=== PATIENT | male | born 1960 | race African-American/Black ===

== ENCOUNTER 2017-03-07 11:57 | Emergency (ER) | payer OTHER ==
[2017-03-07 12:21] VITALS: BMI 30.2
[2017-03-07 12:23] VITALS: TEMP 96.9
--- NOTE | 2017-03-07 12:32 | PDOC ---
History of Present Illness - General History Source: Patient Exam Limitations: No Limitations - History of Present Illness Initial Comments: 03/07/17 12:45 The patient is a 56 year old male with a significant past medical history of HIV , diabetes, hypertension, and hypercholesterolemia, sent from [facility] by ambulance to the Emergency Department s/p unwitnessed slip and fall possibly due to low blood sugar. The patient admits that he tried to get out of bed this morning when he slid down the bed and fell, and an ambulance was called. The patient admits that his blood sugar was 190 last night, and that he took insulin before bed. He admits to that his blood sugar is normally slightly higher. He is unsure of the details of his fall, but denies head trauma. He admits that he believes the fall was due to low blood sugar. He has no complaints at this time other than that he is hungry. He admits that the last time his diabetes medication was changed was one year ago after his kidney transplant. The patient denies headache, double vision, and blurry vision. Patient denies neck pain, or back pain. Patient denies nausea, vomiting, and diarrhea. Patient denies fever, chills, and cough. PCP: doctor at [facility] Hx: kidney transplant (1 year ago) <Rebeca Miller - Last Filed: 03/07/17 12:44> <Ayla Hoffmann - Last Filed: 03/07/17 18:30> - General Chief Complaint: Blood Sugar Problem Stated Complaint: WEAKNESS Time Seen by Provider: 03/07/17 12:18 Past History <Rebeca Miller - Last Filed: 03/07/17 12:44> - Past Medical History Diabetes: Yes (iddm) Dialysis: Yes (hx of esrd, lt arm fistula s/p kidney transplant 2015) HTN: Yes Hypercholesterolemia: Yes HIV: Yes - Psycho/Social/Smoking Cessation Hx Anxiety: No Suicidal Ideation: No Smoking History: Unknown if ever smoked Have you smoked in the past 12 months: No Information on smoking cessation initiated: No Hx Alcohol Use: No Drug/Substance Use Hx: No Substance Use Type: None <Ayla Hoffmann - Last Filed: 03/07/17 18:30> - Past Medical History Allergies/Adverse Reactions: Allergies Allergy/AdvReac Type Severity Reaction Status Date / Time No Known Allergies Allergy Verified 03/07/17 12:15 Home Medications: Ambulatory Orders Abacavir Sulfate [Abacavir] 300 mg PO BID 03/07/17 Carvedilol [Coreg] 25 mg PO BID 03/07/17 Dolutegravir Sodium [Tivicay] 50 mg PO DAILY 03/07/17 Insulin Glargine,Hum.rec.anlog [Lantus (nf)] 17 units SQ HS 03/07/17 Insulin Lispro [Humalog] 12 unit SQ TID 03/07/17 Lamivudine [Epivir] 150 mg PO DAILY 03/07/17 Mycophenolate Mofetil [Cellcept] 1,000 mg PO BID 03/07/17 Nifedipine ER [Procardia Xl -] 90 mg PO BID 03/07/17 Prednisone 5 mg PO HS 03/07/17 Rosuvastatin Calcium [Crestor] 20 mg PO DAILY 03/07/17 Sodium Bicarbonate - 1,300 mg PO BID 03/07/17 Tacrolimus [Prograf] 7 mg PO BID 03/07/17 Tamsulosin HCl [Flomax] 0.4 mg PO DAILY 03/07/17 Review of Systems - Review of Systems Able to Perform ROS?: Yes Comments:: 03/07/17 12:45 GENERAL/CONSTITUTIONAL: + hungry, + low blood sugar. No fever or chills. No weakness. HEAD, EYES, EARS, NOSE AND THROAT: No change in vision. No ear pain or discharge. No sore throat. CARDIOVASCULAR: No chest pain or shortness of breath. RESPIRATORY: No cough, wheezing, or hemoptysis. GASTROINTESTINAL: No nausea, vomiting, diarrhea or constipation. GENITOURINARY: No dysuria, frequency, or change in urination. MUSCULOSKELETAL: No joint or muscle swelling or pain. No neck or back pain. SKIN: No rash NEUROLOGIC: No headache, vertigo, loss of consciousness, or change in strength/ sensation. ENDOCRINE: No increased thirst. No abnormal weight change. HEMATOLOGIC/LYMPHATIC: No anemia, easy bleeding, or history of blood clots. ALLERGIC/IMMUNOLOGIC: No hives or skin allergy. <Rebeca Miller - Last Filed: 03/07/17 12:44> *Physical Exam - Vital Signs Last Vital Signs Temp Pulse Resp BP Pulse Ox 96.9 F L 70 18 168/85 100 03/07/17 12:22 03/07/17 12:15 03/07/17 12:15 03/07/17 12:15 03/07/17 12:15 <Rebeca Miller - Last Filed: 03/07/17 12:44> - Vital Signs Last Vital Signs Temp Pulse Resp BP Pulse Ox 96.9 F L 70 18 168/85 100 03/07/17 12:22 03/07/17 12:15 03/07/17 12:15 03/07/17 12:15 03/07/17 12:15 - Physical Exam Comments: GENERAL: Awake, alert, and fully oriented, in no acute distress HEAD: No signs of trauma EYES: PERRLA, EOMI, sclera anicteric, conjunctiva clear. +Proptosis. ENT: Auricles normal inspection, hearing grossly normal, nares patent, oropharynx clear without exudates. Moist mucosa NECK: Normal ROM, supple, no lymphadenopathy, JVD, or masses LUNGS: Breath sounds equal, clear to auscultation bilaterally. No wheezes, and no crackles HEART: Regular rate and rhythm, normal S1 and S2, no murmurs, rubs or gallops ABDOMEN: Soft, nontender, normoactive bowel sounds. No guarding, no rebound. No masses EXTREMITIES: Normal range of motion, no edema. No clubbing or cyanosis. No cords, erythema, or tenderness NEUROLOGICAL: Cranial nerves II through XII grossly intact. Normal speech, normal gait SKIN: Warm, Dry, normal turgor, no rashes or lesions noted. <Ayla Hoffmann - Last Filed: 03/07/17 18:30> ED Treatment Course - LABORATORY CBC & Chemistry Diagram: 03/07/17 12:40 03/07/17 12:40 <Ayla Hoffmann - Last Filed: 03/07/17 18:30> Medical Decision Making - Medical Decision Making Pt observed in ED for 4 hours. Repeat FS 2 hours after he ate was stable. Stable for DC home. Will f/u at [facility] for insulin management. <Ayla Hoffmann - Last Filed: 03/07/17 18:30> *DC/Admit/Observation/Transfer - Attestations Scribe Attestion: 03/07/17 12:46 Documentation prepared by Rebeca Miller, acting as biomedical engineering technician for Ayla Hoffmann MD. <Rebeca Miller - Last Filed: 03/07/17 12:44> - Discharge Dispostion Admit: No <Ayla Hoffmann - Last Filed: 03/07/17 18:30> Diagnosis at time of Disposition: Hypoglycemia - Discharge Dispostion Disposition: HOME Condition at time of disposition: Stable - Patient Instructions Printed Discharge Instructions: DI for Hypoglycemia
[2017-03-07] MEDS ORDERED: SODIUM CHLORIDE 1,000 ML IV STA (12:37)
[2017-03-07 12:47] LABS: MCH 27.8 pg (25.7-33.7); MCHC 31.8 g/dl (32.0-35.9); MEAN CELL VOLUME 87.6 fl (80-96); MEAN PLT VOLUME 8.3 fl (7.5-11.1); PLATELET COUNT 151 K/MM3 (134-434); RDW 16.5 % (11.9-15.9); WHITE BLOOD COUNT 7.5 K/mm3 (4.0-10.0)
[2017-03-07 12:58] LABS: URINE APPEARANCE CLEAR; URINE BILIRUBIN NEGATIVE (NEGATIVE); URINE BLOOD NEGATIVE (NEGATIVE); URINE COLOR STRAW; URINE GLUCOSE (UA) NEGATIVE (NEGATIVE); URINE KETONE NEGATIVE (NEGATIVE); URINE LEUK ESTERASE NEGATIVE (NEGATIVE); URINE NITRITE NEGATIVE (NEGATIVE); URINE PROTEIN NEGATIVE (NEGATIVE); URINE UROBILINOGEN NEGATIVE E.U./dl (0.2-1.0)
[2017-03-07 13:13] LABS: ALBUMIN 3.7 g/dl (3.4-5.0); CALCIUM 8.4 mg/dL (8.5-10.1); COCKROFT - GAULT 62.26; CREATININE 1.9 mg/dL (0.7-1.3)
[2017-03-07 13:15] LABS: BILIRUBIN,TOTAL 0.8 mg/dL (0.2-1.0); TOT PROT 6.4 g/dl (6.4-8.2)
[2017-03-07 14:48] LABS: METAMYELOCYTE 3 % (0-2); PLATELET ESTIMATE ADEQUATE (NORMAL)
[2017-03-07 17:10] VITALS: BP 164/85; PULSE 78
== END 2017-03-07 17:30 | disposition home or self-care (01) ==
LOC: JER 11:57
PROC: 3E0337Z Introduction of Electrolytic and Water Balance Substance into Peripheral Vein, Percutaneous Approach (ICD-10-PCS; principal; 2017-03-07)
DX: E11.649 Type 2 diabetes mellitus with hypoglycemia without coma (principal); Z21 Asymptomatic human immunodeficiency virus [HIV] infection status; Z79.4 Long term (current) use of insulin; I10 Essential (primary) hypertension; E78.00 Pure hypercholesterolemia, unspecified; Z94.0 Kidney transplant status; W18.30XA Fall on same level, unspecified, initial encounter; Y93.9 Activity, unspecified; Y92.238 Other place in hospital as the place of occurrence of the external cause
CPT/HCPCS: 36415; 80053; 80197; 81003; 84443; 85025; 87086; 99284-25

== ENCOUNTER 2018-01-04 18:51 | Inpatient (IN) | payer OTHER ==
[2018-01-04] MEDS ORDERED: ALBUTEROL SO4 2.5/IPRATROPIUM 0.5 INH SOL 3 ML VIAL.NEB. NEB ONE ×2 (19:01→19:30)
--- NOTE | 2018-01-04 19:07 | PDOC ---
Attending Attestation - HPI HPI: 01/04/18 20:27 The patient is a 57 year old male, with a significant past medical history of CHF, HIV (last viral load undetectable, on HAART), HTN (on nifedipine), and diabetes, who presents to the emergency department via EMS with, 4 days of worsening shortness of breath. As per EMS, the patient was in respiratory distress upon their arrival and has had a worsening cough with associated orthopnea. - Medical Decision Making 01/04/18 20:07 EXAM: CHEST X-RAY PORTABLE* HISTORY: Shortness of breath FINDINGS: Mild to moderate degree cardiomegaly with pulmonary venous congestion. No focal consolidations Pleural contours are normal without pleural effusion or pneumothorax. No suspicious osseous abnormality. IMPRESSION: Mild to moderate degree cardiomegaly with pulmonary venous congestion. No focal consolidations Read by: Parrish Blanco MD <Kaitlin Pandya - Last Filed: 01/04/18 20:27> - Resident Resident Name: Aimee Seals - ED Attending Attestation I have performed the following: I have examined & evaluated the patient, The case was reviewed & discussed with the resident, I agree w/resident's findings & plan, Exceptions are as noted - Physicial Exam PE: 01/04/18 20:34 Patient was seen and evaluated immediately upon arrival. On initial evaluation, patient is obese, tachypneic and dyspneic, on BiPAP, in moderate respiratory distress; nc, atr eomi no jvd + Diffuse end expiratory wheezing bilaterally with intermittent Rales, most prominent at the bases. rrr sft, disted, nt, bowel sounds are normal in all 4 quadrants + 3 pitting edema lower extremity is bilaterally Awake and alert, moving all extremity symmetrically, gait-deferred - Medical Decision Making 01/04/18 20:35 Patient is a 57-year-old male with history of CHF, hypertension, HIV (on ART, viral load undetectable) who presents with worsening shortness of breath at rest and with minimal exertion. On initial evaluation, patient is noted to be dyspneic, tachypneic, with labored breathing, with diffuse expiratory wheezing bilaterally as well as rails which are prominent at the bases. +3 pitting edema of lower extremity is also noted. Differential diagnoses include CHF versus COPD versus pneumonia. We'll obtain CBC/CMP/cardiac enzymes/blood cultures. Chest x-ray reveals cardiomegaly, cephalization, fluid in the fissure, currently being Paula B lines, and a focal right middle lobe infiltrate. Will place patient on BiPAP at 15/5, and FiO2 50%. We'll administer sublingual nitroglycerin followed by nitroglycerin drip. We'll also consider Combivent therapy when necessary. We'll administer ceftriaxone and Zithromax for community -acquired pneumonia. We'll reassess. Likely admission. 01/04/18 21:00 Patient reassessed. Patient is resting comfortably, without accessory muscle use or labored breathing. Intermittent wheezing is still noted on lung evaluation. CBC reveals no evidence of leukocytosis. CMP reveals elevated BUN/ creatinine consistent with patient's previous history of chronic renal insufficiency. Potassium is minimally elevated. Will admit patient to telemetry for cardiac evaluation, and some rule out. <Michael Siu - Last Filed: 01/04/18 21:01> Attestations - Attestations 01/04/18 20:08 Documentation prepared by Kaitlin Pandya, acting as medical information specialist for Michael Siu MD. <Kaitlin Pandya - Last Filed: 01/04/18 20:27> - Attestations Physician Attestation: 01/04/18 20:33 The documentation was prepared by the scribe under my direct supervision. I have reviewed the documentation which correctly represents the findings, medical decision-making and critical action taken by me. <Michael Siu - Last Filed: 01/04/18 21:01>
[2018-01-04] MEDS ORDERED: FUROSEMIDE 100 MG/10 ML INJECTABLE VIAL IVPB ONE (19:31)
[2018-01-04] MEDS ORDERED: NITROGLYCERIN SUBLINGUAL 1/150 0.4 MG TAB SL ONE (19:31)
[2018-01-04] MEDS ORDERED: FUROSEMIDE 40 MG/4 ML INJECTABLE VIAL ONE ×2 (19:34→22:59)
[2018-01-04] MEDS ORDERED: NITROGLYCERIN 25MG/D5W 250ML 25 MG/250 ML ML IVPB ONE (19:34)
[2018-01-04] MEDS: NITROGLYCERIN 25MG/D5W 250ML 25 MG/250 ML ML IVPB SCH ×2 (19:40→23:55)
[2018-01-04] MEDS ORDERED: CEFTRIAXONE 1 GM in DEXTROSE 5%-WATER - 50 ML IVPB ONE (19:51)
[2018-01-04] MEDS ORDERED: AZITHROMYCIN IVPB 500 MG in DEXTROSE 5%-WATER - 250 ML IVPB ONE (19:51)
[2018-01-04 19:56] LABS: BASO % 1.3 % (0-2.0); EOS % 0.4 % (0-4.5); HEMATOCRIT 30.9 % (35.4-49); HEMOGLOBIN 10.2 GM/dL (11.7-16.9); LYMPH % 8.9 % (8-40); MCH 28.7 pg (25.7-33.7); MCHC 32.9 g/dl (32.0-35.9); MEAN CELL VOLUME 87.2 fl (80-96); MONO % 20.3 % (3.8-10.2); NEUT % 69.1 % (42.8-82.8); PLATELET COUNT 121 K/MM3 (134-434); RBC 3.54 M/mm3 (4.00-5.60); RDW 16.7 % (11.9-15.9); WHITE BLOOD COUNT 4.5 K/mm3 (4.0-10.0)
[2018-01-04] MEDS ORDERED: CEFTRIAXONE 1 GM/50 ML BAG ONE (19:59)
[2018-01-04 20:11] LABS: INR 1.04 (0.82-1.09); PROTHROMBIN TIME (PATIENT) 11.7 SEC (9.98-11.88)
[2018-01-04 20:14] LABS: ACTIVATED PTT 31.4 SECONDS (26.9-34.4)
[2018-01-04] MEDS ORDERED: AZITHROMYCIN IVPB 250 ML IVPB ONE (20:18)
--- NOTE | 2018-01-04 20:18 | PDOC ---
History of Present Illness - General Chief Complaint: Respiratory Stated Complaint: DIFFICULTY BREATHING Time Seen by Provider: 01/04/18 19:06 History Source: Patient Exam Limitations: No Limitations - History of Present Illness Initial Comments: This is a 57 YOM with h/o CHF (on 80 Lasix bid adherently, never been intubated for this), HIV (last viral load undetectable, on HAART), HTN (on nifedipine), and IDDM who p/w SOB for the past 4 days worsened significantly in the past 1.5 days. EMS notes that when they arrived on scene the patient was in respiratory distress and pulse oxygenation was mid-80% on RA. They placed him on NIV and O2 with partial relief of his symptoms and improvement of his pulse oxygenation to 98%. The patient has been having increasing cough and orthopnea, typical of his normal CHF exacerbation, but he denies any recent fever, chills, nausea, vomiting, or other symptoms. Past History - Past Medical History Allergies/Adverse Reactions: Allergies Allergy/AdvReac Type Severity Reaction Status Date / Time No Known Allergies Allergy Verified 01/04/18 20:14 Home Medications: Ambulatory Orders Abacavir Sulfate [Abacavir] 300 mg PO BID 03/07/17 Carvedilol [Coreg] 25 mg PO BID 03/07/17 Dolutegravir Sodium [Tivicay] 50 mg PO DAILY 03/07/17 Insulin Glargine,Hum.rec.anlog [Lantus (nf)] 17 units SQ HS 03/07/17 Insulin Lispro [Humalog] 12 unit SQ TID 03/07/17 Lamivudine [Epivir] 150 mg PO DAILY 03/07/17 Mycophenolate Mofetil [Cellcept] 500 mg PO BID 03/07/17 Nifedipine ER [Procardia Xl -] 30 mg PO BID 03/07/17 Prednisone 5 mg PO HS 03/07/17 Rosuvastatin Calcium [Crestor] 10 mg PO DAILY 03/07/17 Sodium Bicarbonate - 1,300 mg PO BID 03/07/17 Tacrolimus [Prograf] 6 mg PO BID 03/07/17 Tamsulosin HCl [Flomax] 0.4 mg PO DAILY 03/07/17 Aspirin 81 mg PO DAILY 01/06/18 Furosemide [Lasix] 40 mg PO BID 01/06/18 Sulfamethoxazole/Trimethoprim [Bactrim Ds -] 1 tab PO DAILY 01/06/18 COPD: No Diabetes: Yes (iddm) Dialysis: Yes (hx of esrd, lt arm fistula s/p kidney transplant 2015) HTN: Yes Hypercholesterolemia: Yes - Suicide/Smoking/Psychosocial Hx Smoking History: Unknown if ever smoked Have you smoked in the past 12 months: No Hx Alcohol Use: No Drug/Substance Use Hx: No Substance Use Type: None Review of Systems - Review of Systems Able to Perform ROS?: Yes Constitutional: No: Chills, Fever, Unexplained wgt Loss HEENTM: No: Nose Congestion, Throat Pain Respiratory: Yes: Cough, Orthopnea, Shortness of Breath. No: Stridor, Wheezing Cardiac (ROS): No: Chest Pain, Palpitations ABD/GI: No: Constipated, Diarrhea, Nausea, Vomiting : No: Burning, Dysuria Musculoskeletal: No: Back Pain, Neck Pain Integumentary: No: Bruising, Rash Neurological: No: Headache, Numbness, Tingling, Weakness, Dizziness Endocrine: No: Unexplained Weight Gain, Unexplained Weight Loss *Physical Exam - Vital Signs Last Vital Signs Temp Pulse Resp BP Pulse Ox 76 20 153/73 100 01/04/18 19:20 01/04/18 19:20 01/04/18 19:20 01/04/18 19:20 - Physical Exam General Appearance: Yes: Nourished, Appropriately Dressed, Mild Distress, Obese , Other (pleasant adult male in mild distress, mild respiratory distress, on BiPAP and tolerating well, answers appropriately in 3-4 word answers) HEENT: positive: EOMI, Normal Voice, Hearing Grossly Normal, Other (mild exophthalmos and moderate periorbital edema). negative: Scleral Icterus (R), Scleral Icterus (L), Nasal Congestion Neck: positive: Trachea midline, Supple. negative: Tender, Rigid, Stridor, Lymphadenopathy (R), Lymphadenopathy (L) Respiratory/Chest: positive: Respiratory Distress (mild), Accessory Muscle Use, Decreased Breath Sounds, Crackles (diffuse bilateral). negative: Rhonchi, Stridor, Wheezing Cardiovascular: positive: Regular Rhythm, Regular Rate, S1, S2, Edema (2+ pitting BLE), JVD, Other (distant heart sounds, multiple AV fistulas and grafts BUE, one of which has good bruit and thrill in proximal RUE) Gastrointestinal/Abdominal: positive: Normal Bowel Sounds, Soft, Protuberent, Distended, Other (multiple well-healed abdominal scars). negative: Tender, Organomegaly, Pulsatile Mass, Guarding Musculoskeletal: positive: Normal Inspection. negative: Decreased Range of Motion, Vertebral Tenderness Extremity: positive: Normal Capillary Refill, Normal Inspection, Normal Range of Motion, Swelling. negative: Tender, Cyanosis Integumentary: positive: Normal Color, Dry, Warm. 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 negative: Confused, Disoriented Heart Score/ECG Review - History History: Slightly suspicious - Electrocardiogram EKG: Normal - Age Age: 45-65 - Risk Factors Risk Factors Heart Score: Yes Hx Hypertension, Yes Hx Diabetes, No Smoking History, Yes Hx Obesity Based on the list above the patient has:: >/=3 risk factors or Hx atherosclerotic disease - Troponin Troponin: </= normal limit - Score Heart Score - Total: 3 #1 ECG reviewed & interpreted by me at: 20:00 Sinus rhythm with rate of 67 and sinus arrhythmia, normal axis and intervals, no ST-T changes ED Treatment Course - LABORATORY CBC & Chemistry Diagram: 01/07/18 06:57 01/07/18 06:57 - Medications Given in the ED: ED Medications Discontinued Medications Generic Name Dose Route Start Last Admin Trade Name Freq PRN Reason Stop Dose Admin Albuterol/Ipratropium 1 amp 01/04/18 19:30 01/04/18 19:30 Duoneb - NEB 01/04/18 19:31 1 amp ONCE ONE Administration Furosemide 80 mg 01/04/18 19:31 01/04/18 19:30 Lasix Injection - IVPB 01/04/18 19:32 80 mg ONCE ONE Administration Nitroglycerin 0.4 mg 01/04/18 19:31 01/04/18 19:53 Nitrostat - SL 01/04/18 19:32 0.4 mg ONCE ONE Administration Medical Decision Making - Medical Decision Making Patient with h/o CHF who p/w SOB, cough, orthopnea same as their prior CHF. Initial VS notable for: BP 177/102, 100% on BiPAP with 10 LPM O2, RR 24, otherwise VS wnl Exam notable for: exophthalmos, periorbital edema, on BiPAP, poor air movement and diffuse crackles, 1+ pitting edema BLE. DDX IBNLT CHF, COPD, asthma, other lung disease, PNA/bronchitis, anemia, ACS, pericarditis, PTX, effusion (e.g. malignancy), other infection, etc. Ordered is CBCD CMP Mg Phos Cardiac Panel BNP Blood Gas Lactate BCx UA UCx EKG CXR. Also NTG SL then ggt, Lasix 80 mg IV push, O2, BiPAP, patient positioned with head of bed up. EKG notable for: SR with sinus arrhythmia rate of 62, nothing acute. CXR notable for: cardiomegaly, vascular congestion, LLL consolidation possible PNA Labs notable for: Hgb 10.2, Na 127, K 5.2, ALS 95, AST 95, Alk Phos 208, CK total 384. Repeat VS: satting well on BiPAP, BP down to 130s systolic with NTG ggt, otherwise wnl. Ordered Azithromycin and ceftriaxone. 01/04/18 20:25 On re-assessment the patient is initially sleeping comfortably. He awakens easily to voice and is alert/oriented. Pulse oxygenation is 100% on BiPAP. Patient has fewer crackles but now is wheezing. DuoNebs administered. 01/04/18 22:18 Patient to be admitted given edema, likely bowel edema, PO medications likely less effective. 01/04/18 22:52 Placed order for 80 mg Lasix IV repeat dose as patient had no UOP with first dose. 01/04/18 23:[address] Kelly, patient to be admitted to inpatient Med/Surg Dr. Dale. Decision to Admit order placed. *DC/Admit/Observation/Transfer Diagnosis at time of Disposition: Hyponatremia Acute exacerbation of CHF (congestive heart failure) Qualifiers: Heart failure type: unspecified Qualified Code(s): I50.9 - Heart failure, unspecified Anemia Qualifiers: Anemia type: unspecified type Qualified Code(s): D64.9 - Anemia, unspecified - Discharge Dispostion Condition at time of disposition: Guarded Admit: Yes - Referrals - Patient Instructions - Post Discharge Activity
[2018-01-04 20:26] LABS: ALBUMIN 3.7 g/dl (3.4-5.0); ANION GAP 9 (8-16); BLOOD UREA NITROGEN 39 mg/dL (7-18); CALCIUM 7.4 mg/dL (8.5-10.1); CHLORIDE 95 mmol/L (98-107); CO2 23 mmol/L (21-32); CREATININE 3.1 mg/dL (0.7-1.3); GLUCOSE,RANDOM 85 mg/dL (74-106); POTASSIUM 5.2 mmol/L (3.5-5.1); SGOT/AST 95 U/L (15-37); SGPT/ALT 95 U/L (12-78); SODIUM 127 mmol/L (136-145)
[2018-01-04 20:30] LABS: ALK PHOS 208 U/L (45-117); BILIRUBIN,TOTAL 0.4 mg/dL (0.2-1.0); TOT PROT 6.5 g/dl (6.4-8.2)
[2018-01-04] MEDS ORDERED: NITROGLYCERIN 2% OINTMENT - 1GM PACKET TD ONE ×2 (22:20→22:25)
[2018-01-04 22:21] LABS: ARTERIAL BLOOD GAS pH 7.36 (7.35-7.45)
[2018-01-04 22:22] LABS: ARTERIAL BLD GAS O2 SATURATION 96.8 % (90-98.9); ARTERIAL BLOOD GAS PCO2 42.4 mmHg (35-45)
[2018-01-04 22:23] LABS: ARTERIAL BLOOD GAS BASE EXCESS -1.6 meq/l (-2-2)
[2018-01-04 22:24] LABS: ALLENS TEST POSITIVE
[2018-01-04] MEDS ORDERED: FUROSEMIDE 40 MG/4 ML INJECTABLE VIAL IVPUSH ONE ×2 (22:51→22:54)
--- NOTE | 2018-01-05 00:05 | PN ---
Teaching Attending Note Name of Resident: Keith Kelly ATTENDING PHYSICIAN STATEMENT I saw and evaluated the patient. I reviewed the resident's note and discussed the case with the resident. I agree with the resident's findings and plan as documented. SUBJECTIVE: This is a 57 year old man with a history of CHF, HIV, HTN, hyperlipidemia, IDDM, kidney translplant who comes to the ED complaining of worsening SOB over the last 4 days. He reports having a cough and orthopnea, and that this feels like his usual CHF. He denies fever, chills, CP, palpitations. EMS found his pulse ox to be mid 80s on RA. He was placed on BiPAP and brought to the ED. OBJECTIVE: Vital Signs Period Temp Pulse Resp BP Sys/Stone Pulse Ox Last 24 Hr 97.2 F 64-76 18-24 125-177/61-102 98-100 HEART: S1S2, RRR LUNGS: Bilateral rales and rhonchi ABDOMEN: Soft, non-tender, non-distended, normal BS EXTREMITIES: 1+ edema Laboratory Tests 01/04/18 01/04/18 01/04/18 19:40 19:46 19:46 WBC 4.5 D RBC 3.54 L Hgb 10.2 L D Hct 30.9 L D MCV 87.2 MCH 28.7 MCHC 32.9 RDW 16.7 H Plt Count 121 L MPV 9.0 Neutrophils % 69.1 Lymphocytes % 8.9 D Monocytes % 20.3 H D Eosinophils % 0.4 Basophils % 1.3 PT with INR 11.70 INR 1.04 PTT (Actin FS) 31.4 Anticoagulation Therapy Puncture Site ABG pH ABG pCO2 at Pt Temp ABG pO2 at Pt Temp ABG HCO3 ABG O2 Sat (Measured) ABG O2 Content ABG Base Excess Grover Test O2 Delivery Device Oxygen Flow Rate Vent Mode Vent Rate Mechanical Rate PEEP Pressure Support Vent Sodium Potassium Chloride Carbon Dioxide Anion Gap BUN Creatinine Creat Clearance w eGFR Random Glucose Lactic Acid 0.6 Calcium Total Bilirubin AST ALT Alkaline Phosphatase Creatine Kinase Creatine Kinase Index CK-MB (CK-2) Troponin I Total Protein Albumin Blood Type Antibody Screen 01/04/18 01/04/18 01/04/18 19:46 19:46 19:46 WBC RBC Hgb Hct MCV MCH MCHC RDW Plt Count MPV Neutrophils % Lymphocytes % Monocytes % Eosinophils % Basophils % PT with INR INR PTT (Actin FS) Anticoagulation Therapy Puncture Site ABG pH ABG pCO2 at Pt Temp ABG pO2 at Pt Temp ABG HCO3 ABG O2 Sat (Measured) ABG O2 Content ABG Base Excess Grover Test O2 Delivery Device Oxygen Flow Rate Vent Mode Vent Rate Mechanical Rate PEEP Pressure Support Vent Sodium 127 L D Potassium 5.2 H D Chloride 95 L Carbon Dioxide 23 Anion Gap 9 BUN 39 H D Creatinine 3.1 H D Creat Clearance w eGFR 20.73 Random Glucose 85 Lactic Acid Calcium 7.4 L Total Bilirubin 0.4 D AST 95 H D ALT 95 H D Alkaline Phosphatase 208 H D Creatine Kinase 384 H Creatine Kinase Index 3.6 CK-MB (CK-2) 13.726 H Troponin I < 0.02 Total Protein 6.5 Albumin 3.7 Blood Type A POSITIVE Antibody Screen Negative 01/04/18 01/04/18 19:46 22:00 WBC RBC Hgb Hct MCV MCH MCHC RDW Plt Count MPV Neutrophils % Lymphocytes % Monocytes % Eosinophils % Basophils % PT with INR INR PTT (Actin FS) Anticoagulation Therapy No Result Required. Puncture Site Left radial ABG pH 7.36 ABG pCO2 at Pt Temp 42.4 ABG pO2 at Pt Temp 105.0 H ABG HCO3 23.2 ABG O2 Sat (Measured) 96.8 ABG O2 Content 13.0 L ABG Base Excess -1.6 Grover Test Positive O2 Delivery Device Bipap Oxygen Flow Rate 40% Vent Mode S/t Vent Rate 12 Mechanical Rate Yes PEEP 0.0 Pressure Support Vent 15/5 Sodium Potassium Chloride Carbon Dioxide Anion Gap BUN Creatinine Creat Clearance w eGFR Random Glucose Lactic Acid Calcium Total Bilirubin AST ALT Alkaline Phosphatase Creatine Kinase Creatine Kinase Index CK-MB (CK-2) Troponin I Total Protein Albumin Blood Type Antibody Screen Home Medications Medication Instructions Recorded Abacavir Sulfate [Abacavir] 300 mg PO BID 03/07/17 Carvedilol [Coreg] 25 mg PO BID 03/07/17 Dolutegravir Sodium [Tivicay] 50 mg PO DAILY 03/07/17 Insulin Glargine,Hum.rec.anlog 17 units SQ HS 03/07/17 [Lantus (nf)] Insulin Lispro [Humalog] 12 unit SQ TID 03/07/17 Lamivudine [Epivir] 150 mg PO DAILY 03/07/17 Mycophenolate Mofetil [Cellcept] 1,000 mg PO BID 03/07/17 Nifedipine ER [Procardia Xl -] 90 mg PO BID 03/07/17 Prednisone 5 mg PO HS 03/07/17 Rosuvastatin Calcium [Crestor] 20 mg PO DAILY 03/07/17 Sodium Bicarbonate - 1,300 mg PO BID 03/07/17 Tacrolimus [Prograf] 7 mg PO BID 03/07/17 Tamsulosin HCl [Flomax] 0.4 mg PO DAILY 03/07/17 ASSESSMENT AND PLAN: This is a 57 year old man with a history of CHF, HIV, HTN, hyperlipidemia, IDDM , kidney transplant who comes to the ED complaining of worsening SOB over the last 4 days. 1. Acute hypoxic respiratory failure secondary to acute heart failure - Continue BiPAP - Change Lasix to IV - Monitor I&O, weight 2. Hyponatremia - Likely secondary to fluid overload - Lasix IV - Monitor electrolyes 3. Stage 4 CKD, history of kidney transplant - Continue CellCept, Prograf, Prednisone - Nephrology consult 3. HIV - Continue Abacavir, Tivicay, Epivir, Prograf 4. IDDM - Continue Lantus - Fingersticks with Novolog sliding scale 5. HTN - Continue Procardia XL, Coreg 6. Hyperlipidemia - Continue Crestor 8. Anemia, likely secondary to chronic illness
--- NOTE | 2018-01-05 00:37 | HP ---
CHIEF COMPLAINT: Shortness of breath PCP: none HISTORY OF PRESENT ILLNESS: The patient is a 57 yo m w/ PMH CHF, HIV, Kidney transplant, HTN BIBEMS c/o a 4 day history of worsening SOB, cough, orthopnea and LE swelling. The patient states that the cough in non-productive. When the patient lies down he feels as if "it is hard to get the air out". The patient has no other associated symptoms. He denies chest pain, abdominal pain, fevers, chills, diarrhea, constipation. ER course was notable for: (1) CXR w/ mild- moderate pulmonary congestion and cardiomegaly (2) (3) Recent Travel: none PAST MEDICAL HISTORY: DM HIV (on HAART, last viral load undetectable) CHF HTN PAST SURGICAL HISTORY: none Social History: Smoking: denies Alcohol: denies Drugs: denies Family History: Non-contributory Allergies No Known Allergies Allergy (Verified 01/04/18 20:14) HOME MEDICATIONS: Home Medications Medication Instructions Recorded Abacavir Sulfate [Abacavir] 300 mg PO BID 03/07/17 Carvedilol [Coreg] 25 mg PO BID 03/07/17 Dolutegravir Sodium [Tivicay] 50 mg PO DAILY 03/07/17 Insulin Glargine,Hum.rec.anlog 17 units SQ HS 03/07/17 [Lantus (nf)] Insulin Lispro [Humalog] 12 unit SQ TID 03/07/17 Lamivudine [Epivir] 150 mg PO DAILY 03/07/17 Mycophenolate Mofetil [Cellcept] 1,000 mg PO BID 03/07/17 Nifedipine ER [Procardia Xl -] 90 mg PO BID 03/07/17 Prednisone 5 mg PO HS 03/07/17 Rosuvastatin Calcium [Crestor] 20 mg PO DAILY 03/07/17 Sodium Bicarbonate - 1,300 mg PO BID 03/07/17 Tacrolimus [Prograf] 7 mg PO BID 03/07/17 Tamsulosin HCl [Flomax] 0.4 mg PO DAILY 03/07/17 REVIEW OF SYSTEMS CONSTITUTIONAL: Absent: fever, chills, diaphoresis, generalized weakness, malaise, loss of appetite, weight change HEENT: Absent: rhinorrhea, nasal congestion, throat pain, throat swelling, difficulty swallowing, mouth swelling, ear pain, eye pain, visual changes CARDIOVASCULAR: Absent: chest pain, syncope, palpitations, irregular heart rate, lightheadedness , peripheral edema RESPIRATORY: Absent: dyspnea with exertion, wheezing, stridor, hemoptysis GASTROINTESTINAL: Absent: abdominal pain, abdominal distension, nausea, vomiting, diarrhea, constipation, melena, hematochezia GENITOURINARY: Absent: dysuria, frequency, urgency, hesitancy, hematuria, flank pain, genital pain MUSCULOSKELETAL: Absent: myalgia, arthralgia, joint swelling, back pain, neck pain SKIN: Absent: rash, itching, pallor HEMATOLOGIC/IMMUNOLOGIC: Absent: easy bleeding, easy bruising, lymphadenopathy, frequent infections ENDOCRINE: Absent: unexplained weight gain, unexplained weight loss, heat intolerance, cold intolerance NEUROLOGIC: Absent: headache, focal weakness or paresthesias, dizziness, unsteady gait, seizure, mental status changes, bladder or bowel incontinence PSYCHIATRIC: Absent: anxiety, depression, suicidal or homicidal ideation, hallucinations. PHYSICAL EXAMINATION Vital Signs - 24 hr 01/04/18 01/04/18 01/04/18 19:00 19:10 19:20 Temperature Pulse Rate 72 Pulse Rate [ 71 76 Apical] Respiratory 24 20 20 Rate Blood Pressure 177/102 Blood Pressure 144/79 153/73 [Left Arm] O2 Sat by Pulse 99 100 100 Oximetry (%) 01/04/18 01/04/18 01/04/18 20:09 20:37 21:15 Temperature 97.2 F L Pulse Rate Pulse Rate [ 66 66 Apical] Respiratory 20 20 Rate Blood Pressure Blood Pressure 157/72 149/70 [Left Arm] O2 Sat by Pulse 100 100 100 Oximetry (%) 01/04/18 01/04/18 01/04/18 21:35 21:45 22:15 Temperature Pulse Rate Pulse Rate [ 71 71 72 Apical] Respiratory 18 20 20 Rate Blood Pressure Blood Pressure 125/88 125/88 150/73 [Left Arm] O2 Sat by Pulse 100 100 99 Oximetry (%) 01/04/18 01/04/18 01/04/18 22:31 22:56 23:35 Temperature Pulse Rate Pulse Rate [ 66 64 67 Apical] Respiratory 18 18 20 Rate Blood Pressure Blood Pressure 131/61 139/64 157/72 [Left Arm] O2 Sat by Pulse 100 100 99 Oximetry (%) 01/05/18 00:06 Temperature Pulse Rate Pulse Rate [ Apical] Respiratory Rate Blood Pressure Blood Pressure [Left Arm] O2 Sat by Pulse 99 Oximetry (%) GENERAL: Awake, alert, and fully oriented, in no acute distress. HEAD: Normal with no signs of trauma. EYES: Pupils equal, round and reactive to light, extraocular movements intact, sclera anicteric, conjunctiva clear. No lid lag. EARS, NOSE, THROAT: Ears normal, nares patent, oropharynx clear without exudates. Moist mucous membranes. NECK: Normal range of motion, supple without lymphadenopathy, JVD, or masses. LUNGS: Breath sounds equal, Inspiratory crackles were heard in mid and lower lung ar[place]o bilaterally. No accessory muscle use. HEART: Regular rate and rhythm, normal S1 and S2 without murmur, rub or gallop. ABDOMEN: Soft, nontender, not distended, normoactive bowel sounds, no guarding, no rebound, no masses. No hepatomegaly or splenomegaly. LOWER EXTREMITIES: 2+ pulses, warm, well-perfused. No calf tenderness. There is 3+ pitting edema bilaterally. NEUROLOGICAL: Cranial nerves II-X intact. Normal speech. Normal gait SKIN: Warm, dry, normal turgor, no rashes or lesions noted, normal capillary refill. Laboratory Results - last 24 hr 01/04/18 01/04/18 01/04/18 19:40 19:46 19:46 WBC 4.5 D RBC 3.54 L Hgb 10.2 L D Hct 30.9 L D MCV 87.2 MCH 28.7 MCHC 32.9 RDW 16.7 H Plt Count 121 L MPV 9.0 Neutrophils % 69.1 Lymphocytes % 8.9 D Monocytes % 20.3 H D Eosinophils % 0.4 Basophils % 1.3 PT with INR 11.70 INR 1.04 PTT (Actin FS) 31.4 Anticoagulation Therapy Puncture Site ABG pH ABG pCO2 at Pt Temp ABG pO2 at Pt Temp ABG HCO3 ABG O2 Sat (Measured) ABG O2 Content ABG Base Excess [place] Test O2 Delivery Device Oxygen Flow Rate Vent Mode Vent Rate Mechanical Rate PEEP Pressure Support Vent Sodium Potassium Chloride Carbon Dioxide Anion Gap BUN Creatinine Creat Clearance w eGFR Random Glucose Lactic Acid 0.6 Calcium Total Bilirubin AST ALT Alkaline Phosphatase Creatine Kinase Creatine Kinase Index CK-MB (CK-2) Troponin I Total Protein Albumin Blood Type Antibody Screen 01/04/18 01/04/18 01/04/18 19:46 19:46 19:46 WBC RBC Hgb Hct MCV MCH MCHC RDW Plt Count MPV Neutrophils % Lymphocytes % Monocytes % Eosinophils % Basophils % PT with INR INR PTT (Actin FS) Anticoagulation Therapy Puncture Site ABG pH ABG pCO2 at Pt Temp ABG pO2 at Pt Temp ABG HCO3 ABG O2 Sat (Measured) ABG O2 Content ABG Base Excess [place] Test O2 Delivery Device Oxygen Flow Rate Vent Mode Vent Rate Mechanical Rate PEEP Pressure Support Vent Sodium 127 L D Potassium 5.2 H D Chloride 95 L Carbon Dioxide 23 Anion Gap 9 BUN 39 H D Creatinine 3.1 H D Creat Clearance w eGFR 20.73 Random Glucose 85 Lactic Acid Calcium 7.4 L Total Bilirubin 0.4 D AST 95 H D ALT 95 H D Alkaline Phosphatase 208 H D Creatine Kinase 384 H Creatine Kinase Index 3.6 CK-MB (CK-2) 13.726 H Troponin I < 0.02 Total Protein 6.5 Albumin 3.7 Blood Type A POSITIVE Antibody Screen Negative 01/04/18 01/04/18 19:46 22:00 WBC RBC Hgb Hct MCV MCH MCHC RDW Plt Count MPV Neutrophils % Lymphocytes % Monocytes % Eosinophils % Basophils % PT with INR INR PTT (Actin FS) Anticoagulation Therapy No Result Required. Puncture Site Left radial ABG pH 7.36 ABG pCO2 at Pt Temp 42.4 ABG pO2 at Pt Temp 105.0 H ABG HCO3 23.2 ABG O2 Sat (Measured) 96.8 ABG O2 Content 13.0 L ABG Base Excess -1.6 [place]ver Test Positive O2 Delivery Device Bipap Oxygen Flow Rate 40% Vent Mode S/t Vent Rate 12 Mechanical Rate Yes PEEP 0.0 Pressure Support Vent 15/5 Sodium Potassium Chloride Carbon Dioxide Anion Gap BUN Creatinine Creat Clearance w eGFR Random Glucose Lactic Acid Calcium Total Bilirubin AST ALT Alkaline Phosphatase Creatine Kinase Creatine Kinase Index CK-MB (CK-2) Troponin I Total Protein Albumin Blood Type Antibody Screen ASSESSMENT/PLAN: The patient is a 57 yo m w/ PMH CHF, kidney transplant, HTN who is being admitted for the treatment of CHF exacerbation. #CHF exacerbation -s/p Lasix 80 IVP in the ED -daily weights -IV Lasix 80 Daily -fluid restriction 1L -CPAP PRN #HTN -c/w home coreg -c/w home procardia #Kidney transplant -c/w cellcept -c/w tacrolimus -c/w prednisone #HIV -c/w home lamivudine -c/w home abacavir #FEN -no fluids indicated -monitor lytes -diabetic diet #Prophy -Hep SQ 5ku TID #Dispo -admit to tele Visit type - Emergency Visit Emergency Visit: Yes ED Registration Date: 01/04/18 Care time: The patient presented to the Emergency Department on the above date and was hospitalized for further evaluation of their emergent condition. - New Patient This patient is new to me today: Yes Date on this admission: 01/05/18 - Critical Care Critical Care patient: No Hospitalist Screening - Colonoscopy Questionnaire Colonoscopy Questionnaire: Colonoscopy Questionnaire - Patient: 50 - 75 years old and never had a screening colonoscopy: Unknown History of colon or rectal polyps, or CA: Unknown History of IBD, Crohn's disease or UC: Unknown History of abdominal radiation therapy as a child: Unknown - Relative: 1 with colon or rectal CA, or polyps at age 60 or younger: Unknown Colon or rectal CA diagnosed at age 45 or younger: Unknown Multiple relatives with colon or rectal CA: Unknown - Outcome: Screening Result: Negative Screen
[2018-01-05 00:58] LABS: URINE APPEARANCE CLEAR; URINE BILIRUBIN NEGATIVE (<2.0 mg/dL); URINE BLOOD 1+ (NEGATIVE); URINE COLOR STRAW; URINE GLUCOSE (UA) NEGATIVE (NEGATIVE); URINE KETONE NEGATIVE (NEGATIVE); URINE LEUK ESTERASE NEGATIVE (NEGATIVE); URINE NITRITE NEGATIVE (NEGATIVE); URINE PROTEIN NEGATIVE (NEGATIVE); URINE UROBILINOGEN NEGATIVE mg/dL (0.2-1.0)
[2018-01-05 01:20] LABS: EPI CELLS RARE /HPF (FEW); URINE HYALINE CAST 1 /lpf; URINE MUCUS RARE
[2018-01-05 01:31] VITALS: BMI 262.0
[2018-01-05 06:10] LABS: BASO % 4.6 % (0-2.0); EOS % 2.1 % (0-4.5); HEMATOCRIT 30.4 % (35.4-49); LYMPH % 15.1 % (8-40); MCH 28.8 pg (25.7-33.7); MCHC 32.9 g/dl (32.0-35.9); MEAN CELL VOLUME 87.7 fl (80-96); MEAN PLT VOLUME 9.8 fl (7.5-11.1); MONO % 15.4 % (3.8-10.2); NEUT % 62.8 % (42.8-82.8); PLATELET COUNT 123 K/MM3 (134-434); RBC 3.46 M/mm3 (4.00-5.60); RDW 16.8 % (11.9-15.9); WHITE BLOOD COUNT 3.4 K/mm3 (4.0-10.0)
[2018-01-05] MEDS: HEPARIN NA (PORCINE) 5,000 UNITS/ML 1ML VIAL SQ SCH ×3 (06:10→21:31)
[2018-01-05] MEDS ORDERED: INSULIN SLIDING SCALE (NOVOLOG) 1 VIAL SQ SCH (07:00)
[2018-01-05 07:24] LABS: INR 1.04 (0.82-1.09); PROTHROMBIN TIME (PATIENT) 11.8 SEC (9.98-11.88)
[2018-01-05 07:27] LABS: ACTIVATED PTT 22.8 SECONDS (26.9-34.4)
[2018-01-05] MEDS ORDERED: PT OWN MED DRAWER 7, Y5N ONE ×2 (09:04→21:20)
[2018-01-05] MEDS: TAMSULOSIN HCL 0.4 MG CAP.ER.24H (FP) PO SCH (09:16)
[2018-01-05] MEDS: CARVEDILOL 25 MG TABLET (FP) PO SCH ×2 (09:16→21:31)
[2018-01-05] MEDS: ABACAVIR SULFATE 300 MG TABLET PO SCH ×2 (09:51→21:32)
[2018-01-05] MEDS: DOLUTEGRAVIR SODIUM 50 MG TABLET PO SCH (09:51)
[2018-01-05] MEDS: lamiVUDine 150 MG TABLET PO SCH (09:52)
--- NOTE | 2018-01-05 09:59 | PN ---
Progress Note (short form) - Note Progress Note: Subjective: no fever or chills , SOBis much better , no CP reports LE edema . no change in lasix dosing as outpt , no increase in salt intake recently. Objective: Vital Signs: Last Vital Signs Temp Pulse Resp BP Pulse Ox 98.2 F 69 20 154/89 99 01/05/18 07:28 01/05/18 07:28 01/05/18 07:30 01/05/18 07:28 01/05/18 07:30 Laboratory Results - last 24 hr 01/04/18 01/04/18 01/04/18 19:40 19:46 19:46 WBC 4.5 D RBC 3.54 L Hgb 10.2 L D Hct 30.9 L D MCV 87.2 MCH 28.7 MCHC 32.9 RDW 16.7 H Plt Count 121 L MPV 9.0 Neutrophils % 69.1 Lymphocytes % 8.9 D Monocytes % 20.3 H D Eosinophils % 0.4 Basophils % 1.3 PT with INR 11.70 INR 1.04 PTT (Actin FS) 31.4 Anticoagulation Therapy Puncture Site ABG pH ABG pCO2 at Pt Temp ABG pO2 at Pt Temp ABG HCO3 ABG O2 Sat (Measured) ABG O2 Content ABG Base Excess [place] Test O2 Delivery Device Oxygen Flow Rate Vent Mode Vent Rate Mechanical Rate PEEP Pressure Support Vent Sodium Potassium Chloride Carbon Dioxide Anion Gap BUN Creatinine Creat Clearance w eGFR POC Glucometer Random Glucose Lactic Acid 0.6 Calcium Total Bilirubin AST ALT Alkaline Phosphatase Creatine Kinase Creatine Kinase Index CK-MB (CK-2) Troponin I Total Protein Albumin Urine Color Urine Appearance Urine pH Ur Specific [place] Urine Protein Urine Glucose (UA) Urine Ketones Urine Blood Urine Nitrite Urine Bilirubin Urine Urobilinogen Ur Leukocyte Esterase Urine WBC (Auto) Urine RBC (Auto) Ur Epithelial Cells Hyaline Casts Urine Mucus Blood Type Antibody Screen 01/04/18 01/04/18 01/04/18 19:46 19:46 19:46 WBC RBC Hgb Hct MCV MCH MCHC RDW Plt Count MPV Neutrophils % Lymphocytes % Monocytes % Eosinophils % Basophils % PT with INR INR PTT (Actin FS) Anticoagulation Therapy Puncture Site ABG pH ABG pCO2 at Pt Temp ABG pO2 at Pt Temp ABG HCO3 ABG O2 Sat (Measured) ABG O2 Content ABG Base Excess [place] Test O2 Delivery Device Oxygen Flow Rate Vent Mode Vent Rate Mechanical Rate PEEP Pressure Support Vent Sodium 127 L D Potassium 5.2 H D Chloride 95 L Carbon Dioxide 23 Anion Gap 9 BUN 39 H D Creatinine 3.1 H D Creat Clearance w eGFR 20.73 POC Glucometer Random Glucose 85 Lactic Acid Calcium 7.4 L Total Bilirubin 0.4 D AST 95 H D ALT 95 H D Alkaline Phosphatase 208 H D Creatine Kinase 384 H Creatine Kinase Index 3.6 CK-MB (CK-2) 13.726 H Troponin I < 0.02 Total Protein 6.5 Albumin 3.7 Urine Color Urine Appearance Urine pH Ur Specific [place] Urine Protein Urine Glucose (UA) Urine Ketones Urine Blood Urine Nitrite Urine Bilirubin Urine Urobilinogen Ur Leukocyte Esterase Urine WBC (Auto) Urine RBC (Auto) Ur Epithelial Cells Hyaline Casts Urine Mucus Blood Type A POSITIVE Antibody Screen Negative 01/04/18 01/04/18 01/05/18 19:46 22:00 00:24 WBC RBC Hgb Hct MCV MCH MCHC RDW Plt Count MPV Neutrophils % Lymphocytes % Monocytes % Eosinophils % Basophils % PT with INR INR PTT (Actin FS) Anticoagulation Therapy No Result Required. Puncture Site Left radial ABG pH 7.36 ABG pCO2 at Pt Temp 42.4 ABG pO2 at Pt Temp 105.0 H ABG HCO3 23.2 ABG O2 Sat (Measured) 96.8 ABG O2 Content 13.0 L ABG Base Excess -1.6 [place] Test Positive O2 Delivery Device Bipap Oxygen Flow Rate 40% Vent Mode S/t Vent Rate 12 Mechanical Rate Yes PEEP 0.0 Pressure Support Vent 15/5 Sodium Potassium Chloride Carbon Dioxide Anion Gap BUN Creatinine Creat Clearance w eGFR POC Glucometer Random Glucose Lactic Acid Calcium Total Bilirubin AST ALT Alkaline Phosphatase Creatine Kinase Creatine Kinase Index CK-MB (CK-2) Troponin I Total Protein Albumin Urine Color Straw Urine Appearance Clear Urine pH 5.0 D Ur Specific [place] 1.005 Urine Protein Negative Urine Glucose (UA) Negative Urine Ketones Negative Urine Blood 1+ H Urine Nitrite Negative Urine Bilirubin Negative Urine Urobilinogen Negative Ur Leukocyte Esterase Negative Urine WBC (Auto) <1 Urine RBC (Auto) 1 Ur Epithelial Cells Rare Hyaline Casts 1 Urine Mucus Rare Blood Type Antibody Screen 01/05/18 01/05/18 01/05/18 05:00 05:00 06:05 WBC 3.4 L RBC 3.46 L Hgb 10.0 L Hct 30.4 L MCV 87.7 MCH 28.8 MCHC 32.9 RDW 16.8 H Plt Count 123 L MPV 9.8 Neutrophils % 62.8 Lymphocytes % 15.1 D Monocytes % 15.4 H Eosinophils % 2.1 D Basophils % 4.6 H D PT with INR 11.80 INR 1.04 PTT (Actin FS) 22.8 L Anticoagulation Therapy Puncture Site ABG pH ABG pCO2 at Pt Temp ABG pO2 at Pt Temp ABG HCO3 ABG O2 Sat (Measured) ABG O2 Content ABG Base Excess [place] Test O2 Delivery Device Oxygen Flow Rate Vent Mode Vent Rate Mechanical Rate PEEP Pressure Support Vent Sodium Potassium Chloride Carbon Dioxide Anion Gap BUN Creatinine Creat Clearance w eGFR POC Glucometer 67 Random Glucose Lactic Acid Calcium Total Bilirubin AST ALT Alkaline Phosphatase Creatine Kinase Creatine Kinase Index CK-MB (CK-2) Troponin I Total Protein Albumin Urine Color Urine Appearance Urine pH Ur Specific [place] Urine Protein Urine Glucose (UA) Urine Ketones Urine Blood Urine Nitrite Urine Bilirubin Urine Urobilinogen Ur Leukocyte Esterase Urine WBC (Auto) Urine RBC (Auto) Ur Epithelial Cells Hyaline Casts Urine Mucus Blood Type Antibody Screen Physical Exam: NAD, AAox3 . no facial droop, MMM. CV: RRR,JVD Lungs: decreased breath sounds at bases. Abd:soft , NT, ND , obese. Ext: 3+ edema on LE , no ulcers. Imaging: cxray reviewed. Assessment/Plan: 57 y/o man with h.o CKD , s/p renal transplant, HTN, HIV, CHF , HLP,DM , Upper GI bleed from ulcers , and other medical problems who presented with SOB and worsenign LE edema , and was diagnosed with acute CHAF exacerbation . 1- acute hypoxic resp failure due to Acute CHF exacerbation. not clear of type. no echo in records. denies any recent change in lasix dosing or salt intake. - UOP 2 L after 80 mg of lasix x 3 in ER. Now better off BIPAP. - will give IV lasix 80 BID . - monitor AI&O and weight - check Echo - cont coreg - not on ACEI and now , without knowing his base line Cr ,will not introduce - his machine packer is at [place] . will consult Card promotional marketing agent - repeat cxray in am , no evidence of clinical PNA , although cxray questioned retrocardiac infiltrate 2- h/o renal transplant, in February 2017. now with Cr 3.1 ( repeat pending this am ) - most recent Cr base line is not known. - cont lasix and follow Cr. might be in ANAHI form acute CHF - renal consult - his transplant manager switch is Dr. Phillips in [facility] [phone]. will contact tomorrow - renal US. - cont prednisone, tacrulimus and cellcept 3- h/o DM : he admits to taking 60 of lantus in afternoon and develops hypoglycemia to 50-70s in am , could be becauseof increasing cr - this am sugar 60s . - hold levemir. - give SSI today - add lower dose levemir if sugar increases 4- HTN: cont nifedipine xl, and coreg 5- hyponatremia:likely due to CHF. repeat pending 6- hyperkalemia :likely from renal failure. repeat pending 7- transamnitis : likely liver congestion form heart failure . repeat pending if no improvement with diuresis , will obtain US and hep panel 8- h/o HIV: cont meds. don't have Tivicay 9- DVT PX HLOC Visit type - Emergency Visit Emergency Visit: Yes ED Registration Date: 01/04/18 Care time: The patient presented to the Emergency Department on the above date and was hospitalized for further evaluation of their emergent condition. - New Patient This patient is new to me today: Yes Date on this admission: 01/05/18 - Critical Care Critical Care patient: No
[2018-01-05] MEDS ORDERED: NIFEdipine E.R. 90 MG TABLET (FP) PO SCH (10:00)
[2018-01-05] MEDS ORDERED: FUROSEMIDE 40 MG/4 ML INJECTABLE VIAL IVPUSH SCH (10:00)
[2018-01-05] MEDS ORDERED: MYCOPHENOLATE MOFETIL 500 MG TABLET PO SCH (10:00)
[2018-01-05] MEDS ORDERED: TACROLIMUS ANHYDROUS 5 MG, TACROLIMUS ANHYDROUS 2 MG PO SCH (10:00)
[2018-01-05] MEDS ORDERED: SODIUM BICARBONATE 650 MG TABLET PO SCH (10:00)
[2018-01-05] MEDS ORDERED: TACROLIMUS 7 MG PO SCH (10:00)
[2018-01-05] MEDS: INSULIN SLIDING SCALE (NOVOLOG) 1 VIAL SQ SCH ×2 (11:09→17:08)
[2018-01-05] MEDS: FUROSEMIDE 40 MG/4 ML INJECTABLE VIAL IVPUSH SCH (13:47)
--- NOTE | 2018-01-05 17:22 | CON.CARD ---
Consult Consult Specialty:: Cardiology Reason for Consultation:: SOB - History of Present Illness Chief Complaint: SOB History of Present Illness: This is a 57 year old male with a PMH of CHF, HIV on HAART, HTN, and DM. ESRD previously on HD till kidney transplant in 2017. Over the past 4 days he has noticed the progressive on-set of CHF. This worsened and he called EMS who found him in respiratory distress. CXR showed an enlarged hear and SOB. He is improving on Lasix 80 mg IVSS BID - Alcohol/Substance Use Hx Alcohol Use: No - Smoking History Smoking history: Unknown if ever smoked Have you smoked in the past 12 months: No Aproximately how many cigarettes per day: 0 Home Medications - Allergies Allergies/Adverse Reactions: Allergies Allergy/AdvReac Type Severity Reaction Status Date / Time No Known Allergies Allergy Verified 01/04/18 20:14 - Home Medications Home Medications: Ambulatory Orders Abacavir Sulfate [Abacavir] 300 mg PO BID 03/07/17 Carvedilol [Coreg] 25 mg PO BID 03/07/17 Dolutegravir Sodium [Tivicay] 50 mg PO DAILY 03/07/17 Insulin Glargine,Hum.rec.anlog [Lantus (nf)] 17 units SQ HS 03/07/17 Insulin Lispro [Humalog] 12 unit SQ TID 03/07/17 Lamivudine [Epivir] 150 mg PO DAILY 03/07/17 Mycophenolate Mofetil [Cellcept] 1,000 mg PO BID 03/07/17 Nifedipine ER [Procardia Xl -] 90 mg PO BID 03/07/17 Prednisone 5 mg PO HS 03/07/17 Rosuvastatin Calcium [Crestor] 20 mg PO DAILY 03/07/17 Sodium Bicarbonate - 1,300 mg PO BID 03/07/17 Tacrolimus [Prograf] 7 mg PO BID 03/07/17 Tamsulosin HCl [Flomax] 0.4 mg PO DAILY 03/07/17 Review of Systems Findings/Remarks: As Per HPI Vital Signs: Vital Signs Temperature 98.6 F 01/05/18 13:45 Pulse Rate 75 01/05/18 13:45 Respiratory Rate 20 01/05/18 13:45 Blood Pressure 162/75 01/05/18 13:45 O2 Sat by Pulse Oximetry (%) 99 01/05/18 07:30 Constitutional: Yes: Well Nourished, No Distress Eyes: Yes: WNL HENT: Yes: WNL Neck: Yes: WNL Respiratory: Yes: Rales (Minimal basilar rales) Gastrointestinal: Yes: Soft Cardiovascular: Yes: Regular Rate and Rhythm (NL S1S2 No MRHG) JVD: Yes Edema: LLE: 1+, RLE: 1+ Neurological: Yes: Alert, Oriented (Grossly non focal) - Other Data Labs, Other Data: CBC, BMP 01/05/18 05:00 INR, PTT INR 1.04 (0.82-1.09) 01/05/18 05:00 Troponin, BNP 01/04/18 19:46 Troponin I < 0.02 Troponin, BNP 01/04/18 19:46 Troponin I < 0.02 Assessment/Plan CHF Obtain an echocardiogram Would check BNP Continue Lasix 80 mg IVSS BID Daily I's/O's/Wt's/Lytes HLD Continue Crestor HTN Continue Nifedipine XL 90 mg daily
--- NOTE | 2018-01-05 17:24 | CON.NEP ---
Consult Consult Specialty:: Nephrology Referred by:: Dr Dale Reason for Consultation:: CKD with Renal Tx - History of Present Illness Chief Complaint: Dyspnea History of Present Illness: This is a 57 year old man with a history of CHF, HIV, HTN, hyperlipidemia, IDDM , ESRD previously on HD till kidney transplant in 2017 that was admitted with fluid overload and uncontrolled HTN. Pt feels better aver IV Lasix and IV NTG in addition to prn BiPAP. UO since this am has been 4.5 liters Asked to evaluate pt for his kidney disease which pt states had been worsening. He had a renal biopsy done about 3 weeks ago at [facility] by Dr Milly Pearl [phone]. Result of biopsy not known by pt at this time Tx Meds Prograf 6 mgs PO BID Mycophenolate 500 mgs PO BID Prednisone 5 mgs PO Daily - History Source History Provided By: Patient, Medical Record - Past Surgical History Additional Surgical History: S/P Renal Tx and AVF in the RUE - Alcohol/Substance Use Hx Alcohol Use: No - Smoking History Smoking history: Former smoker Have you smoked in the past 12 months: No Aproximately how many cigarettes per day: 0 Home Medications - Allergies Allergies/Adverse Reactions: Allergies Allergy/AdvReac Type Severity Reaction Status Date / Time No Known Allergies Allergy Verified 01/04/18 20:14 - Home Medications Home Medications: Ambulatory Orders Abacavir Sulfate [Abacavir] 300 mg PO BID 03/07/17 Carvedilol [Coreg] 25 mg PO BID 03/07/17 Dolutegravir Sodium [Tivicay] 50 mg PO DAILY 03/07/17 Insulin Glargine,Hum.rec.anlog [Lantus (nf)] 17 units SQ HS 03/07/17 Insulin Lispro [Humalog] 12 unit SQ TID 03/07/17 Lamivudine [Epivir] 150 mg PO DAILY 03/07/17 Mycophenolate Mofetil [Cellcept] 1,000 mg PO BID 03/07/17 Nifedipine ER [Procardia Xl -] 90 mg PO BID 03/07/17 Prednisone 5 mg PO HS 03/07/17 Rosuvastatin Calcium [Crestor] 20 mg PO DAILY 03/07/17 Sodium Bicarbonate - 1,300 mg PO BID 03/07/17 Tacrolimus [Prograf] 7 mg PO BID 03/07/17 Tamsulosin HCl [Flomax] 0.4 mg PO DAILY 03/07/17 Review of Systems - Review of Systems Constitutional: denies: Chills Cardiovascular: reports: Shortness of Breath. denies: Chest Pain, Palpitations Respiratory: reports: Orthopnea Nephrology Consult - Height Height: 6 ft 6 in - Weight Weight: 2267 lb 14.4 oz - BMI Body Mass Index (BMI): 262.0 - Lab Results CBC,BMP: CBC, BMP 01/05/18 05:00 Laboratory Tests 01/04/18 19:46 Sodium 127 L D Potassium 5.2 H D Chloride 95 L Carbon Dioxide 23 Anion Gap 9 BUN 39 H D Creatinine 3.1 H D Creat Clearance w eGFR 20.73 Random Glucose 85 Calcium 7.4 L Total Bilirubin 0.4 D AST 95 H D ALT 95 H D Alkaline Phosphatase 208 H D Creatine Kinase 384 H Creatine Kinase Index 3.6 CK-MB (CK-2) 13.726 H Total Protein 6.5 Albumin 3.7 U/A: Laboratory Tests 01/05/18 00:24 Urine Color Straw Urine Appearance Clear Urine pH 5.0 D Ur Specific [place] 1.005 Urine Protein Negative Urine Glucose (UA) Negative Urine Ketones Negative Urine Blood 1+ H Urine Nitrite Negative Urine Bilirubin Negative Urine Urobilinogen Negative Ur Leukocyte Esterase Negative Urine WBC (Auto) <1 Urine RBC (Auto) 1 Urine Mucus Rare Anion Gap: Anion Gap Anion Gap 9 (8-16) 01/04/18 19:46 - Imaging Chest X-ray: Report Reviewed EKG: Image Reviewed (Sinus arrhythmia with non specific ST T wave changes) - Physical Examination Vital Signs: Vital Signs Temperature 98.6 F 01/05/18 13:45 Pulse Rate 75 01/05/18 13:45 Respiratory Rate 20 01/05/18 13:45 Blood Pressure 162/75 01/05/18 13:45 O2 Sat by Pulse Oximetry (%) 99 01/05/18 07:30 Assessment/Plan Impression Fluid overload in pt with CKD R/O CHF from reduced LVF CKD with renal transplant DM HTN HIV Disease Hypervolemic hyponatremia Pancytopenia on cellcept HLD Plan Continue with lasix 80 mgs IV BID D/C NaHCO3 for now - note today's chemistries pending but last Bicar level above 22 and it is a salt load Change Procardia XL to 60 mg s PO BID Echocardiogram Renal sonogram Prograf reduced to 6 mgs PO BID and Cellcept decreased to 500 mgs PO BID Prograf level in am Taper off the IV NTG To contact Dr Milly Pearl [phone] regarding pt's baseline Cr and result of the last renal bx from 23 weeks ago Thank You Will Follow Dr Peña
[2018-01-05] MEDS ORDERED: NITROGLYCERIN 25MG/D5W 250ML 25 MG/250 ML ML IVPB SCH (18:11)
[2018-01-05] MEDS: ROSUVASTATIN CA 20 MG TABLET (FP) PO SCH (21:31)
[2018-01-05] MEDS: NIFEdipine E.R 60 MG TABLET (UD) PO SCH (21:31)
[2018-01-05] MEDS: predniSONE 5 MG TABLET (UD) PO SCH (21:31)
[2018-01-05] MEDS: MYCOPHENOLATE MOFETIL 500 MG TABLET PO SCH (21:32)
--- NOTE | 2018-01-05 21:34 | EKG ---
Test Reason : Blood Pressure : / mmHG Vent. Rate : 067 BPM Atrial Rate : 067 BPM P-R Int : 158 ms QRS Dur : 098 ms QT Int : 416 ms P-R-T Axes : -17 047 038 degrees QTc Int : 439 ms POOR DATA QUALITY, INTERPRETATION MAY BE ADVERSELY AFFECTED NORMAL SINUS RHYTHM WITH SINUS ARRHYTHMIA NORMAL ECG NO PREVIOUS ECGS AVAILABLE Confirmed by ADRIANA IBRAHIM MD ([id number]) on 01/05/2018 9:34:04 PM Referred By: Confirmed By:ADRIANA IBRAHIM MD
[2018-01-05] MEDS: TACROLIMUS ANHYDROUS PO SCH (22:18)
[2018-01-06 00:02] LABS: BLOOD UREA NITROGEN 42 mg/dL (7-18); CREATININE 2.9 mg/dL (0.7-1.3); GLUCOSE,RANDOM 64 mg/dL (74-106)
[2018-01-06 00:03] LABS: SODIUM 134 mmol/L (136-145)
[2018-01-06 00:05] LABS: ANION GAP 9 (8-16); CALCIUM 8.3 mg/dL (8.5-10.1); CHLORIDE 101 mmol/L (98-107); CO2 24 mmol/L (21-32); MAGNESIUM 1.8 mg/dL (1.8-2.4); PHOSPHOROUS 5.3 mg/dL (2.5-4.9)
[2018-01-06 00:06] LABS: BILIRUBIN,TOTAL 0.8 mg/dL (0.2-1.0); SGOT/AST 80 U/L (15-37); TOT PROT 6.3 g/dl (6.4-8.2)
[2018-01-06 00:07] LABS: ALK PHOS 149 U/L (45-117); SGPT/ALT 81 U/L (12-78)
[2018-01-06] MEDS: INSULIN SLIDING SCALE (NOVOLOG) 1 VIAL SQ SCH ×3 (06:23→17:46)
[2018-01-06] MEDS: FUROSEMIDE 40 MG/4 ML INJECTABLE VIAL IVPUSH SCH ×2 (06:28→14:06)
[2018-01-06] MEDS: HEPARIN NA (PORCINE) 5,000 UNITS/ML 1ML VIAL SQ SCH ×3 (06:28→21:41)
[2018-01-06 07:07] LABS: BASO % 2.8 % (0-2.0); EOS % 3.2 % (0-4.5); HEMATOCRIT 32.2 % (35.4-49); HEMOGLOBIN 10.3 GM/dL (11.7-16.9); MCHC 32.1 g/dl (32.0-35.9); MEAN CELL VOLUME 87.2 fl (80-96); MEAN PLT VOLUME 8.5 fl (7.5-11.1); MONO % 17.9 % (3.8-10.2); NEUT % 64.1 % (42.8-82.8); PLATELET COUNT 118 K/MM3 (134-434); RBC 3.69 M/mm3 (4.00-5.60); RDW 16.9 % (11.9-15.9); WHITE BLOOD COUNT 3.7 K/mm3 (4.0-10.0)
[2018-01-06 07:33] LABS: ALBUMIN 3.5 g/dl (3.4-5.0); ANION GAP 11 (8-16); BLOOD UREA NITROGEN 36 mg/dL (7-18); CHLORIDE 106 mmol/L (98-107); CO2 23 mmol/L (21-32); GLUCOSE,RANDOM 98 mg/dL (74-106); POTASSIUM 4.5 mmol/L (3.5-5.1); SODIUM 140 mmol/L (136-145)
[2018-01-06 07:39] LABS: ALK PHOS 194 U/L (45-117); BILIRUBIN,TOTAL 0.4 mg/dL (0.2-1.0); CREATININE 2.3 mg/dL (0.7-1.3); SGOT/AST 50 U/L (15-37); SGPT/ALT 69 U/L (12-78); TOT PROT 5.9 g/dl (6.4-8.2)
[2018-01-06] MEDS ORDERED: PT OWN MED DRAWER 7, Y5N ONE ×2 (09:11→21:39)
[2018-01-06] MEDS: lamiVUDine 150 MG TABLET PO SCH (09:58)
[2018-01-06] MEDS: CARVEDILOL 25 MG TABLET (FP) PO SCH ×2 (09:58→21:41)
[2018-01-06] MEDS: NIFEdipine E.R 60 MG TABLET (UD) PO SCH ×2 (09:58→21:41)
[2018-01-06] MEDS: TAMSULOSIN HCL 0.4 MG CAP.ER.24H (FP) PO SCH (09:58)
[2018-01-06] MEDS: MYCOPHENOLATE MOFETIL 500 MG TABLET PO SCH ×2 (09:59→21:42)
[2018-01-06] MEDS: TACROLIMUS ANHYDROUS PO SCH ×2 (09:59→21:43)
[2018-01-06] MEDS: ABACAVIR SULFATE 300 MG TABLET PO SCH (09:59)
[2018-01-06] MEDS: DOLUTEGRAVIR SODIUM 50 MG TABLET PO SCH (10:01)
--- NOTE | 2018-01-06 10:05 | PN ---
Progress Note, Physician Chief Complaint: SOB much improved No events on tele History of Present Illness: This is a 57 year old male with a PMH of CHF, HIV on HAART, HTN, and DM. ESRD previously on HD till kidney transplant in 2017. Over the past 4 days he has noticed the progressive on-set of CHF. This worsened and he called EMS who found him in respiratory distress. CXR showed an enlarged hear and SOB. He is improving on Lasix 80 mg IVSS BID - Current Medication List Current Medications: Active Medications Abacavir Sulfate (Ziagen -) 300 mg PO BID COUNT [facility]CLUDES [facility] Last Admin: 01/06/18 09:59 Dose: 300 mg Carvedilol (Coreg -) 25 mg PO BID COUNT [facility]CLUDES [facility] Last Admin: 01/06/18 09:58 Dose: 25 mg Furosemide (Lasix Injection -) 80 mg IVPUSH BIDLASIX COUNT INCLUDES [facility] Last Admin: 01/06/18 06:28 Dose: 80 mg Heparin Sodium (Porcine) (Heparin -) 5,000 unit SQ TID COUNT [facility]CLUD[facility] Last Admin: 01/06/18 06:28 Dose: 5,000 unit Nitroglycerin/Dextrose (Nitroglycerin 25mg/D5w 250ml) 25 mg in 250 mls @ 12 mls /hr IVPB TITR [facility]ANCIS; 20 MCG/MIN PRN Reason: Protocol Last Admin: 01/05/18 18:14 Dose: 5 mcg/min, 3 mls/hr Insulin Aspart (Novolog Vial Sliding Scale -) 1 vial SQ TIDAC [facility] PRN Reason: Protocol Last Admin: 01/06/18 06:23 Dose: Not Given Lamivudine (Epivir -) 150 mg PO DAILY [facility] Last Admin: 01/06/18 09:58 Dose: 150 mg Mycophenolate Mofetil (Cellcept -) 500 mg PO BID [facility] Last Admin: 01/06/18 09:59 Dose: 500 mg Nifedipine (Procardia Xl -) 60 mg PO BID [facility] Last Admin: 01/06/18 09:58 Dose: 60 mg Prednisone (Deltasone -) 5 mg PO HS COUNT [facility] Last Admin: 01/05/18 21:31 Dose: 5 mg Rosuvastatin Calcium (Crestor -) 20 mg PO HS COUNT [facility] Last Admin: 01/05/18 21:31 Dose: 20 mg Tacrolimus 1 mg/ Tacrolimus 5 (mg) 6 mg PO BID [facility] Last Admin: 01/06/18 09:59 Dose: 6 mg Tamsulosin HCl (Flomax -) 0.4 mg PO DAILY@0830 [facility] Last Admin: 01/06/18 09:58 Dose: 0.4 mg - Objective Vital Signs: Vital Signs Temperature 98.2 F 01/06/18 09:00 Pulse Rate 73 01/06/18 09:00 Respiratory Rate 20 01/06/18 09:00 Blood Pressure 169/86 01/06/18 09:00 O2 Sat by Pulse Oximetry (%) 90 L 01/05/18 22:00 Constitutional: Yes: No Distress Neck: Yes: Supple Respiratory: Yes: CTA Bilaterally Gastrointestinal: Yes: Soft Edema: LLE: 1+, RLE: 1+ Labs: CBC, BMP 01/06/18 06:45 01/06/18 06:45 INR, PTT INR 1.04 (0.82-1.09) 01/05/18 05:00 Problem List - Problems (1) Acute exacerbation of CHF (congestive heart failure) Code(s): I50.9 - HEART FAILURE, UNSPECIFIED Qualifiers: Heart failure type: unspecified Qualified Code(s): I50.9 - Heart failure, unspecified Assessment/Plan This is a 57 year old male with a PMH of CHF, HIV on HAART, HTN, and DM. ESRD previously on HD till kidney transplant in 2017. Over the past 4 days he has noticed the progressive on-set of CHF. This worsened and he called EMS who found him in respiratory distress. CXR showed an enlarged hear and SOB. 1) Acute CHF -Improving with diuretics. Would continue with Furosemide 80mg IV bid Monitor lytes, urine output, and renal function which is improving -Plan for echocardiogram Feels well with no chest pain, no acute ekg changes, no events on tele. Can stop tele. On carvedilol. Nifedipine increased today to 60mg bid. Will monitor for need for additional agent -Follow up with renal transplant team at [facility].
[2018-01-06] MEDS ORDERED: NIFEdipine E.R. 30 MG TABLET (FP) PO ONE (10:45)
--- NOTE | 2018-01-06 15:45 | PN ---
Teaching Attending Note Name of Resident: Keith Kelly ATTENDING PHYSICIAN STATEMENT I saw and evaluated the patient. I reviewed the resident's note and discussed the case with the resident. I agree with the resident's findings and plan as documented. SUBJECTIVE: no fever or chills. has no abd pain , SOB is better, LE edema is better OBJECTIVE: NAD, AAox3 . no facial droop, MMM. CV: RRR,JVD Lungs: CTAB , better areation of the bases Ext: 2+ edema on LE form mid thigh to feet , no ulcers. Assessment/Plan: 57 y/o man with h.o CKD , s/p renal transplant, HTN, HIV, CHF , HLP,DM , Upper GI bleed from ulcers , and other medical problems who presented with SOB and worsening LE edema , and was diagnosed with acute CHAF exacerbation . 1- Acute hypoxic resp failure due to Acute CHF exacerbation. Improved - cont lasix at 80 BID - echo results pending - cont coreg 2- ANAHI. s/p renal transplant 02/27 - Cr improved. cont diuresis - will obtain Cr base line form [facility] in [place] - renal US pending - cont prednisone, tacrulimus and cellcept ( at adjusted doses ) . tAcru level pending 3- H/o DM :on 60 of lantus at home - hold long acting insulinand Cont SSI 4- HTN: cont nifedipine xl, and coreg 5- hyponatremia:likely due to CHF.improved 6- hyperkalemia :resolved 7- Transamnitis : likely liver congestion form heart failure . improved 8- h/o HIV: cont meds. 9- DVT PX HLOC
--- NOTE | 2018-01-06 15:49 | PN ---
Progress Note, Physician History of Present Illness: Pt seen and examined at bedside. He feels that his breathing is a little better. He still complains of lower ext edema. - Current Medication List Current Medications: Active Medications Abacavir Sulfate (Ziagen -) 300 mg PO BID [facility] Last Admin: 01/06/18 09:59 Dose: 300 mg Carvedilol (Coreg -) 25 mg PO BID [facility] Last Admin: 01/06/18 09:58 Dose: 25 mg Furosemide (Lasix Injection -) 80 mg IVPUSH BIDLASIX [facility] Last Admin: 01/06/18 14:06 Dose: 80 mg Heparin Sodium (Porcine) (Heparin -) 5,000 unit SQ TID [facility] Last Admin: 01/06/18 14:06 Dose: 5,000 unit Nitroglycerin/Dextrose (Nitroglycerin 25mg/D5w 250ml) 25 mg in 250 mls @ 12 mls /hr IVPB TITR [facility]; 20 MCG/MIN PRN Reason: Protocol Last Admin: 01/05/18 18:14 Dose: 5 mcg/min, 3 mls/hr Insulin Aspart (Novolog Vial Sliding Scale -) 1 vial SQ TIDAC [facility] PRN Reason: Protocol Last Admin: 01/06/18 11:23 Dose: Not Given Lamivudine (Epivir -) 150 mg PO DAILY [facility] Last Admin: 01/06/18 09:58 Dose: 150 mg Mycophenolate Mofetil (Cellcept -) 500 mg PO BID [facility] Last Admin: 01/06/18 09:59 Dose: 500 mg Nifedipine (Procardia Xl -) 90 mg PO DAILY [facility] Prednisone (Deltasone -) 5 mg PO HS [facility] Last Admin: 01/05/18 21:31 Dose: 5 mg Rosuvastatin Calcium (Crestor -) 20 mg PO HS [facility] Last Admin: 01/05/18 21:31 Dose: 20 mg Tacrolimus 1 mg/ Tacrolimus 5 (mg) 6 mg PO BID [facility] Last Admin: 01/06/18 09:59 Dose: 6 mg Tamsulosin HCl (Flomax -) 0.4 mg PO DAILY@0830 [facility] Last Admin: 01/06/18 09:58 Dose: 0.4 mg - Objective Vital Signs: Vital Signs Temperature 98.2 F 01/06/18 13:29 Pulse Rate 72 01/06/18 13:29 Respiratory Rate 19 01/06/18 13:29 Blood Pressure 149/65 01/06/18 13:29 O2 Sat by Pulse Oximetry (%) 97 01/06/18 10:00 Constitutional: Yes: Calm Eyes: Yes: Conjunctiva Clear HENT: Yes: Atraumatic Neck: Yes: Supple Cardiovascular: Yes: S1, S2 Respiratory: Yes: On Nasal O2, Rhonchi Gastrointestinal: Yes: Soft, Abdomen, Obese Genitourinary: Yes: Other (graft soft and non tender) Musculoskeletal: Yes: WNL Edema: Yes Edema: LLE: 1+, RLE: 1+ Integumentary: Yes: WNL Neurological: Yes: Oriented Psychiatric: Yes: Oriented Labs: CBC, BMP 01/06/18 06:45 01/06/18 06:45 INR, PTT INR 1.04 (0.82-1.09) 01/05/18 05:00 - ....Imaging Chest X-ray: Report Reviewed Assessment/Plan Current Medications Generic Name Dose Route Start Last Admin Trade Name Freq PRN Reason Stop Dose Admin Abacavir Sulfate 300 mg 01/05/18 10:00 01/06/18 09:59 Ziagen - PO 300 mg BID [facility] Administration Carvedilol 25 mg 01/05/18 10:00 01/06/18 09:58 Coreg - PO 25 mg BID [facility] Administration Furosemide 80 mg 01/05/18 14:00 01/06/18 14:06 Lasix Injection - IVPUSH 80 mg BIDLASIX [facility] Administration Heparin Sodium (Porcine) 5,000 unit 01/05/18 06:00 01/06/18 14:06 Heparin - SQ 5,000 unit TID [facility] Administration Nitroglycerin/Dextrose 25 mg in 250 mls @ 12 mls/hr 01/05/18 18:11 01/05/18 18:14 Nitroglycerin 25mg/D5w 250ml IVPB 5 mcg/min TITR [facility] 3 mls/hr Protocol Administration 20 MCG/MIN Insulin Aspart 1 vial 01/05/18 11:00 01/06/18 11:23 Novolog Vial Sliding Scale - SQ Not Given TIDAC [facility] Protocol Lamivudine 150 mg 01/05/18 10:00 01/06/18 09:58 Epivir - PO 150 mg DAILY [facility] Administration Mycophenolate Mofetil 500 mg 01/05/18 22:00 01/06/18 09:59 Cellcept - PO 500 mg BID [facility] Administration Nifedipine 90 mg 01/07/18 10:00 Procardia Xl - PO DAILY [facility] Prednisone 5 mg 01/05/18 22:00 01/05/18 21:31 Deltasone - PO 5 mg HS [facility] Administration Rosuvastatin Calcium 20 mg 01/05/18 22:00 01/05/18 21:31 Crestor - PO 20 mg HS [facility] Administration Tacrolimus 1 mg/ Tacrolimus 5 6 mg 01/05/18 22:00 01/06/18 09:59 mg PO 6 mg BID [facility] Administration Tamsulosin HCl 0.4 mg 01/05/18 08:30 01/06/18 09:58 Flomax - PO 0.4 mg DAILY@0830 [facility] Administration Impression 1. kidney transplant 2. CKD 3. CHF 4. fluid overload 5. DM 6. HTN 7. HIV Disease 8. ANAHI 9. Hypervolemic hyponatremia 10. Pancytopenia on cellcept 11. HLD Plan - follow prograf level - creatinine is improving - cellcept dose adjusted - heme eval for pancytopenia - cont lasxi - cxr shows improvement - repeat labs in am Dr Gutierrez
--- NOTE | 2018-01-06 18:48 | PN ---
Physical Exam: SUBJECTIVE: Patient seen and examined at bedside. Patient looks and feels much better than on admission. He states the swelling in his legs has gone down, but is not completely gone yet. OBJECTIVE: Vital Signs Period Temp Pulse Resp BP Sys/Stone Pulse Ox Last 24 Hr 98.2 F-99 F 72-77 19-22 140-181/62-86 90-97 GENERAL: The patient is awake, alert, and fully oriented, in no acute distress. HEAD: Normal with no signs of trauma. LUNGS: Breath sounds equal,mild expiratory wheezes b/l, no crackles, no accessory muscle use. HEART: Regular rate and rhythm, S1, S2 without murmur, rub or gallop. ABDOMEN: Soft, nontender, nondistended, normoactive bowel sounds, no guarding, no rebound, no hepatosplenomegaly, no masses. EXTREMITIES: 2+ pulses, warm, well-perfused. There is 2+ pitting edema b/l NEUROLOGICAL: Cranial nerves II through X grossly intact. Normal speech, gait not observed. SKIN: Warm, dry, normal turgor, no rashes or lesions noted. Laboratory Results - last 24 hr 01/05/18 01/05/18 01/06/18 05:00 21:29 06:19 WBC RBC Hgb Hct MCV MCH MCHC RDW Plt Count MPV Neutrophils % Lymphocytes % Monocytes % Eosinophils % Basophils % Sodium 134 L Potassium TNP Chloride 101 Carbon Dioxide 24 Anion Gap 9 BUN 42 H Creatinine 2.9 H Creat Clearance w eGFR 22.38 POC Glucometer 103 102 Random Glucose 64 L D Calcium 8.3 L Phosphorus 5.3 H Magnesium 1.8 Total Bilirubin 0.8 D AST 80 H ALT 81 H Alkaline Phosphatase 149 H D Total Protein 6.3 L Albumin 4.0 01/06/18 01/06/18 01/06/18 06:45 06:45 11:22 WBC 3.7 L RBC 3.69 L Hgb 10.3 L Hct 32.2 L MCV 87.2 MCH 28.0 MCHC 32.1 RDW 16.9 H Plt Count 118 L MPV 8.5 D Neutrophils % 64.1 Lymphocytes % 12.0 D Monocytes % 17.9 H Eosinophils % 3.2 Basophils % 2.8 H Sodium 140 Potassium 4.5 Chloride 106 Carbon Dioxide 23 Anion Gap 11 BUN 36 H Creatinine 2.3 H D Creat Clearance w eGFR 29.25 POC Glucometer 100 Random Glucose 98 D Calcium 8.0 L Phosphorus Magnesium Total Bilirubin 0.4 D AST 50 H D ALT 69 Alkaline Phosphatase 194 H D Total Protein 5.9 L Albumin 3.5 01/06/18 17:44 WBC RBC Hgb Hct MCV MCH MCHC RDW Plt Count MPV Neutrophils % Lymphocytes % Monocytes % Eosinophils % Basophils % Sodium Potassium Chloride Carbon Dioxide Anion Gap BUN Creatinine Creat Clearance w eGFR POC Glucometer 116 Random Glucose Calcium Phosphorus Magnesium Total Bilirubin AST ALT Alkaline Phosphatase Total Protein Albumin Active Medications Generic Name Dose Route Start Last Admin Trade Name Freq PRN Reason Stop Dose Admin Abacavir Sulfate 600 mg 01/07/18 10:00 Ziagen - PO DAILY [facility] Carvedilol 25 mg 01/05/18 10:00 01/06/18 09:58 Coreg - PO 25 mg BID [facility] Administration Furosemide 80 mg 01/05/18 14:00 01/06/18 14:06 Lasix Injection - IVPUSH 80 mg BIDLASIX [facility] Administration Heparin Sodium (Porcine) 5,000 unit 01/05/18 06:00 01/06/18 14:06 Heparin - SQ 5,000 unit TID [facility] Administration Nitroglycerin/Dextrose 25 mg in 250 mls @ 12 mls/hr 01/05/18 18:11 01/05/18 18:14 Nitroglycerin 25mg/D5w 250ml IVPB 5 mcg/min TITR [facility] 3 mls/hr Protocol Administration 20 MCG/MIN Insulin Aspart 1 vial 01/05/18 11:00 01/06/18 17:46 Novolog Vial Sliding Scale - SQ Not Given TIDAC [facility] Protocol Lamivudine 300 mg 01/06/18 16:43 Epivir - PO DAILY [facility] Mycophenolate Mofetil 500 mg 01/05/18 22:00 01/06/18 09:59 Cellcept - PO 500 mg BID [facility] Administration Nifedipine 60 mg 01/06/18 22:00 Procardia Xl - PO BID [facility] Prednisone 5 mg 01/05/18 22:00 01/05/18 21:31 Deltasone - PO 5 mg HS [facility] Administration Rosuvastatin Calcium 20 mg 01/05/18 22:00 01/05/18 21:31 Crestor - PO 20 mg HS [facility] Administration Tacrolimus 1 mg/ Tacrolimus 5 6 mg 01/05/18 22:00 01/06/18 09:59 mg PO 6 mg BID [facility] Administration Tamsulosin HCl 0.4 mg 01/05/18 08:30 01/06/18 09:58 Flomax - PO 0.4 mg DAILY@0830 [facility] Administration ASSESSMENT/PLAN: The patient is a 57 yo m w/ PMH CHF, kidney transplant, HTN who is being admitted for the treatment of CHF exacerbation. #CHF exacerbation -daily weights; improving -IV Lasix 80 BID -fluid restriction 1L -titrated supplemental O2 down from 4L to 2L -c/w nitro GGT #HTN -c/w home coreg 25 BID -c/w home procardia 60 BID #Kidney transplant -c/w cellcept 500 BID -c/w tacrolimus 6 mg BID -c/w prednisone 5mg -c/w home tamsulosin .4 mg #HIV -c/w home lamivudine 300mg -c/w home abacavir 600mg -c/w home tivicay 50mg #HLD -c/w home crestor 20mg HS #FEN -no fluids indicated -monitor lytes -diabetic diet #Prophy -Hep SQ 5ku TID #Dispo -admit to tele Visit type - Emergency Visit Emergency Visit: Yes ED Registration Date: 01/04/18 Care time: The patient presented to the Emergency Department on the above date and was hospitalized for further evaluation of their emergent condition. - New Patient This patient is new to me today: No - Critical Care Critical Care patient: No
[2018-01-06] MEDS: predniSONE 5 MG TABLET (UD) PO SCH (21:41)
[2018-01-06] MEDS: ROSUVASTATIN CA 20 MG TABLET (FP) PO SCH (21:42)
[2018-01-06] MEDS ORDERED: NIFEdipine E.R 60 MG TABLET (UD) PO SCH (22:00)
[2018-01-07] MEDS: INSULIN SLIDING SCALE (NOVOLOG) 1 VIAL SQ SCH ×3 (06:11→17:16)
[2018-01-07] MEDS: FUROSEMIDE 40 MG/4 ML INJECTABLE VIAL IVPUSH SCH ×2 (06:21→13:54)
[2018-01-07] MEDS: HEPARIN NA (PORCINE) 5,000 UNITS/ML 1ML VIAL SQ SCH ×3 (06:21→21:07)
[2018-01-07 07:12] LABS: HEMATOCRIT 34.2 % (35.4-49); HEMOGLOBIN 10.9 GM/dL (11.7-16.9); MCH 28.3 pg (25.7-33.7); MCHC 31.9 g/dl (32.0-35.9); MEAN CELL VOLUME 88.6 fl (80-96); MEAN PLT VOLUME 8.8 fl (7.5-11.1); PLATELET COUNT 129 K/MM3 (134-434); RBC 3.86 M/mm3 (4.00-5.60); WHITE BLOOD COUNT 4.8 K/mm3 (4.0-10.0)
[2018-01-07 07:42] LABS: ANION GAP 5 (8-16); BLOOD UREA NITROGEN 30 mg/dL (7-18); CALCIUM 8.1 mg/dL (8.5-10.1); CHLORIDE 110 mmol/L (98-107); CO2 27 mmol/L (21-32); CREATININE 2.1 mg/dL (0.7-1.3); GLUCOSE,RANDOM 115 mg/dL (74-106); POTASSIUM 4.8 mmol/L (3.5-5.1); SODIUM 142 mmol/L (136-145)
[2018-01-07] MEDS ORDERED: PT OWN MED DRAWER 7, Y5N ONE ×2 (08:34→20:43)
[2018-01-07] MEDS: TAMSULOSIN HCL 0.4 MG CAP.ER.24H (FP) PO SCH (08:42)
[2018-01-07] MEDS: CARVEDILOL 25 MG TABLET (FP) PO SCH ×2 (09:16→21:06)
[2018-01-07] MEDS: NIFEdipine E.R 60 MG TABLET (UD) PO SCH ×2 (09:16→21:06)
[2018-01-07] MEDS: ABACAVIR SULFATE 300 MG TABLET PO SCH (09:17)
[2018-01-07] MEDS: TACROLIMUS ANHYDROUS PO SCH ×2 (09:18→23:25)
[2018-01-07] MEDS: DOLUTEGRAVIR SODIUM 50 MG TABLET PO SCH (09:20)
[2018-01-07] MEDS: lamiVUDine 150 MG TABLET PO SCH (09:20)
[2018-01-07] MEDS: MYCOPHENOLATE MOFETIL 500 MG TABLET PO SCH ×2 (09:21→23:24)
[2018-01-07] MEDS ORDERED: NIFEdipine E.R 60 MG TABLET (UD) PO SCH (10:00)
--- NOTE | 2018-01-07 13:20 | PN ---
Progress Note, Physician Chief Complaint: SOB improving Ambulating without oxygen History of Present Illness: This is a 57 year old male with a PMH of CHF, HIV on HAART, HTN, and DM. ESRD previously on HD till kidney transplant in 2017. Over the past 4 days he has noticed the progressive on-set of CHF. This worsened and he called EMS who found him in respiratory distress. CXR showed an enlarged hear and SOB. He is improving on Lasix 80 mg IVSS BID - Current Medication List Current Medications: Active Medications Abacavir Sulfate (Ziagen -) 600 mg PO DAILY [facility] Last Admin: 01/07/18 09:17 Dose: 600 mg Carvedilol (Coreg -) 25 mg PO BID [facility] Last Admin: 01/07/18 09:16 Dose: 25 mg Furosemide (Lasix Injection -) 80 mg IVPUSH BIDLASIX [facility] Last Admin: 01/07/18 06:21 Dose: 80 mg Heparin Sodium (Porcine) (Heparin -) 5,000 unit SQ TID [facility] Last Admin: 01/07/18 06:21 Dose: 5,000 unit Insulin Aspart (Novolog Vial Sliding Scale -) 1 vial SQ TIDAC [facility] PRN Reason: Protocol Last Admin: 01/07/18 12:03 Dose: Not Given Lamivudine (Epivir -) 300 mg PO DAILY [facility] Last Admin: 01/07/18 09:20 Dose: 300 mg Mycophenolate Mofetil (Cellcept -) 500 mg PO BID [facility] Last Admin: 01/07/18 09:21 Dose: 500 mg Nifedipine (Procardia Xl -) 60 mg PO BID [facility] Last Admin: 01/07/18 09:16 Dose: 60 mg Prednisone (Deltasone -) 5 mg PO HS [facility] Last Admin: 01/06/18 21:41 Dose: 5 mg Rosuvastatin Calcium (Crestor -) 20 mg PO HS [facility] Last Admin: 01/06/18 21:42 Dose: 20 mg Tacrolimus 1 mg/ Tacrolimus 5 (mg) 6 mg PO BID [facility] Last Admin: 01/07/18 09:18 Dose: 6 mg Tamsulosin HCl (Flomax -) 0.4 mg PO DAILY@0830 [facility] Last Admin: 01/07/18 08:42 Dose: 0.4 mg - Objective Vital Signs: Vital Signs Temperature 97.7 F 01/07/18 07:43 Pulse Rate 74 01/07/18 07:43 Respiratory Rate 20 01/07/18 07:45 Blood Pressure 141/72 01/07/18 07:43 O2 Sat by Pulse Oximetry (%) 100 01/06/18 22:00 Constitutional: Yes: No Distress Neck: Yes: Supple Cardiovascular: Yes: Regular Rate and Rhythm, S1. No: JVD Respiratory: Yes: CTA Bilaterally Gastrointestinal: Yes: Soft Edema: LLE: 1+, RLE: 1+ Labs: CBC, BMP 01/07/18 06:57 01/07/18 06:57 INR, PTT INR 1.04 (0.82-1.09) 01/05/18 05:00 Problem List - Problems (1) Acute exacerbation of CHF (congestive heart failure) Code(s): I50.9 - HEART FAILURE, UNSPECIFIED Qualifiers: Heart failure type: unspecified Qualified Code(s): I50.9 - Heart failure, unspecified Assessment/Plan This is a 57 year old male with a PMH of CHF, HIV on HAART, HTN, and DM. ESRD previously on HD till kidney transplant in 2017. Over the past 4 days he has noticed the progressive on-set of CHF. This worsened and he called EMS who found him in respiratory distress. CXR showed an enlarged hear and SOB. 1) Acute CHF -Improving with diuretics. Would continue with Furosemide 80mg IV bid Monitor lytes, urine output, and renal function which is improving -Echocardiogram with normal LVEF and no significant valve disease 2) HTN On carvedilol and nifedipine 3) Renal Renal f/u Cr stable.
--- NOTE | 2018-01-07 14:28 | PN ---
Progress Note, Physician History of Present Illness: Pt seen and examined at bedside. He feels that his breathing is improved. - Current Medication List Current Medications: Active Medications Abacavir Sulfate (Ziagen -) 600 mg PO DAILY [facility] Last Admin: 01/07/18 09:17 Dose: 600 mg Carvedilol (Coreg -) 25 mg PO BID [facility] Last Admin: 01/07/18 09:16 Dose: 25 mg Furosemide (Lasix Injection -) 80 mg IVPUSH BIDLASIX [facility] Last Admin: 01/07/18 13:54 Dose: 80 mg Heparin Sodium (Porcine) (Heparin -) 5,000 unit SQ TID [facility] Last Admin: 01/07/18 13:54 Dose: 5,000 unit Insulin Aspart (Novolog Vial Sliding Scale -) 1 vial SQ TIDAC [facility] PRN Reason: Protocol Last Admin: 01/07/18 12:03 Dose: Not Given Lamivudine (Epivir -) 300 mg PO DAILY [facility] Last Admin: 01/07/18 09:20 Dose: 300 mg Mycophenolate Mofetil (Cellcept -) 500 mg PO BID [facility] Last Admin: 01/07/18 09:21 Dose: 500 mg Nifedipine (Procardia Xl -) 60 mg PO BID [facility] Last Admin: 01/07/18 09:16 Dose: 60 mg Prednisone (Deltasone -) 5 mg PO HS [facility] Last Admin: 01/06/18 21:41 Dose: 5 mg Rosuvastatin Calcium (Crestor -) 20 mg PO HS [facility] Last Admin: 01/06/18 21:42 Dose: 20 mg Tacrolimus 1 mg/ Tacrolimus 5 (mg) 6 mg PO BID [facility] Last Admin: 01/07/18 09:18 Dose: 6 mg Tamsulosin HCl (Flomax -) 0.4 mg PO DAILY@0830 [facility] Last Admin: 01/07/18 08:42 Dose: 0.4 mg - Objective Vital Signs: Vital Signs Temperature 97.7 F 01/07/18 07:43 Pulse Rate 74 01/07/18 07:43 Respiratory Rate 20 01/07/18 07:45 Blood Pressure 141/72 01/07/18 07:43 O2 Sat by Pulse Oximetry (%) 100 01/06/18 22:00 Constitutional: Yes: Calm Eyes: Yes: Conjunctiva Clear HENT: Yes: Atraumatic Neck: Yes: Supple Cardiovascular: Yes: S1, S2 Respiratory: Yes: CTA Bilaterally Gastrointestinal: Yes: Normal Bowel Sounds, Soft, Abdomen, Obese Genitourinary: Yes: Other (graft soft and non tender) Musculoskeletal: Yes: WNL Edema: Yes Edema: LLE: 1+, RLE: 1+ Neurological: Yes: Oriented Psychiatric: Yes: Oriented Labs: CBC, BMP 01/07/18 06:57 01/07/18 06:57 INR, PTT INR 1.04 (0.82-1.09) 01/05/18 05:00 Problem List - Problems (1) CKD (chronic kidney disease) Code(s): N18.9 - CHRONIC KIDNEY DISEASE, UNSPECIFIED (2) Kidney transplant recipient Code(s): Z94.0 - KIDNEY TRANSPLANT STATUS (3) Acute exacerbation of CHF (congestive heart failure) Code(s): I50.9 - HEART FAILURE, UNSPECIFIED Qualifiers: Heart failure type: unspecified Qualified Code(s): I50.9 - Heart failure, unspecified (4) Anemia Code(s): D64.9 - ANEMIA, UNSPECIFIED Qualifiers: Anemia type: unspecified type Qualified Code(s): D64.9 - Anemia, unspecified Assessment/Plan Current Medications Generic Name Dose Route Start Last Admin Trade Name Freq PRN Reason Stop Dose Admin Abacavir Sulfate 300 mg 01/05/18 10:00 01/06/18 09:59 Ziagen - PO 300 mg BID [facility] Administration Carvedilol 25 mg 01/05/18 10:00 01/06/18 09:58 Coreg - PO 25 mg BID [facility] Administration Furosemide 80 mg 01/05/18 14:00 01/06/18 14:06 Lasix Injection - IVPUSH 80 mg BIDLASIX [facility] Administration Heparin Sodium (Porcine) 5,000 unit 01/05/18 06:00 01/06/18 14:06 Heparin - SQ 5,000 unit TID [facility] Administration Nitroglycerin/Dextrose 25 mg in 250 mls @ 12 mls/hr 01/05/18 18:11 01/05/18 18:14 Nitroglycerin 25mg/D5w 250ml IVPB 5 mcg/min TITR [facility] 3 mls/hr Protocol Administration 20 MCG/MIN Insulin Aspart 1 vial 01/05/18 11:00 01/06/18 11:23 Novolog Vial Sliding Scale - SQ Not Given TIDAC [facility] Protocol Lamivudine 150 mg 01/05/18 10:00 01/06/18 09:58 Epivir - PO 150 mg DAILY [facility] Administration Mycophenolate Mofetil 500 mg 01/05/18 22:00 01/06/18 09:59 Cellcept - PO 500 mg BID [facility] Administration Nifedipine 90 mg 01/07/18 10:00 Procardia Xl - PO DAILY [facility] Prednisone 5 mg 01/05/18 22:00 01/05/18 21:31 Deltasone - PO 5 mg HS [facility] Administration Rosuvastatin Calcium 20 mg 01/05/18 22:00 01/05/18 21:31 Crestor - PO 20 mg HS [facility] Administration Tacrolimus 1 mg/ Tacrolimus 5 6 mg 01/05/18 22:00 01/06/18 09:59 mg PO 6 mg BID [facility] Administration Tamsulosin HCl 0.4 mg 01/05/18 08:30 01/06/18 09:58 Flomax - PO 0.4 mg DAILY@0830 [facility] Administration Laboratory Tests 01/06/18 06:45 Tacrolimus Pending Impression 1. kidney transplant 2. CKD 3. CHF 4. fluid overload 5. DM 6. HTN 7. HIV Disease 8. ANAHI 9. Hypervolemic hyponatremia 10. Pancytopenia on cellcept 11. HLD Plan - renal function is improving - cont lasix - pancytopenia is improving, cont current meds and repeat cbc in am - repeat bmp in am - follow prograf level Dr Gutierrez
--- NOTE | 2018-01-07 16:20 | PN ---
Teaching Attending Note Name of Resident: Keith Kelly ATTENDING PHYSICIAN STATEMENT I saw and evaluated the patient. I reviewed the resident's note and discussed the case with the resident. I agree with the resident's findings and plan as documented. SUBJECTIVE: SOB is better , LE edema is better but not at base line . did not use BIPAP at night , still needs O2 OBJECTIVE: NAD, AAox3 . no facial droop, MMM. CV: RRR, still has JVD Lungs: CTAB , Ext: 2+ edema on LE form mid thigh to feet , no ulcers. Assessment/Plan: 57 y/o man with h.o CKD , s/p renal transplant, HTN, HIV, CHF , HLP,DM , Upper GI bleed from ulcers , and other medical problems who presented with SOB and worsening LE edema , and was diagnosed with acute CHAF exacerbation . 1- Acute hypoxic resp failure due to Acute on chronic diastolic CHF exacerbation. Improved - cont lasix at 80 BID - echo reviewed - cont coreg 2- ANAHI. Spoke to Dr. Pearl,s/p renal transplant 02/26 . His base line Cr is 2 , increased to 3 then had a renal Bx on 12/16/17 which showed ATn with no signs of rejection. Dr. Pearl reports compliance with meds . - renal US with no hydro in transplanted kidney - cont prednisone, tacrulimus and cellcept . tAcru level pending 3- H/o DM :on 17 units of lantus at home - hold long acting insulin and Cont SSI . Might be able to introduce lower dose tomorrow if sugar cont to increase 4- HTN: cont nifedipine xl, and coreg if BP cont to be elevated , will need to adjust meds 5- hyponatremia:likely due to CHF.improved 6- hyperkalemia :resolved 7- Transamnitis : likely liver congestion form heart failure . improved 8- h/o HIV: cont meds. confirmed. 9- DVT PX HLOC Meds were confirmed with Dr. Dae lundberg
--- NOTE | 2018-01-07 19:20 | PN ---
Physical Exam: SUBJECTIVE: Patient seen and examined at bedside. Patient continues to improve daily. States he breathing is improved today. OBJECTIVE: Vital Signs Period Temp Pulse Resp BP Sys/Stone Pulse Ox Last 24 Hr 97.7 F-98.6 F 73-80 20-20 136-174/69-80 100-100 GENERAL: The patient is awake, alert, and fully oriented, in no acute distress. NECK: Trachea midline, full range of motion, supple. LUNGS: Breath sounds equal, decreased breath sounds at the bases. no wheezes, no crackles, no accessory muscle use. HEART: Regular rate and rhythm, S1, S2 without murmur, rub or gallop. ABDOMEN: Soft, nontender, nondistended, normoactive bowel sounds, no guarding, no rebound, no hepatosplenomegaly, no masses. EXTREMITIES: 2+ pulses, warm, well-perfused, There is 2+ pitting edema over both lower extremities to the knee and 1+ pitting edema above the knee. NEUROLOGICAL: Cranial nerves II through X grossly intact. Normal speech, gait not observed. SKIN: Warm, dry, normal turgor, no rashes or lesions noted Laboratory Results - last 24 hr 01/06/18 01/07/18 01/07/18 21:18 06:06 06:57 WBC 4.8 RBC 3.86 L Hgb 10.9 L Hct 34.2 L MCV 88.6 MCH 28.3 MCHC 31.9 L RDW 17.0 H Plt Count 129 L MPV 8.8 Sodium Potassium Chloride Carbon Dioxide Anion Gap BUN Creatinine POC Glucometer 151 120 Random Glucose Calcium 01/07/18 01/07/18 01/07/18 06:57 11:40 16:38 WBC RBC Hgb Hct MCV MCH MCHC RDW Plt Count MPV Sodium 142 Potassium 4.8 Chloride 110 H Carbon Dioxide 27 Anion Gap 5 L BUN 30 H Creatinine 2.1 H POC Glucometer 115 143 Random Glucose 115 H Calcium 8.1 L Active Medications Generic Name Dose Route Start Last Admin Trade Name Freq PRN Reason Stop Dose Admin Abacavir Sulfate 600 mg 01/07/18 10:00 01/07/18 09:17 Ziagen - PO 600 mg DAILY [facility]IS Administration Carvedilol 25 mg 01/05/18 10:00 01/07/18 09:16 Coreg - PO 25 mg BID [facility] Administration Furosemide 80 mg 01/05/18 14:00 01/07/18 13:54 Lasix Injection - IVPUSH 80 mg BIDLASIX [facility] Administration Heparin Sodium (Porcine) 5,000 unit 01/05/18 06:00 01/07/18 13:54 Heparin - SQ 5,000 unit TID [facility] Administration Insulin Aspart 1 vial 01/05/18 11:00 01/07/18 12:03 Novolog Vial Sliding Scale - SQ Not Given TIDAC [facility] Protocol Lamivudine 300 mg 01/06/18 16:43 01/07/18 09:20 Epivir - PO 300 mg DAILY [facility] Administration Mycophenolate Mofetil 500 mg 01/05/18 22:00 01/07/18 09:21 Cellcept - PO 500 mg BID [facility] Administration Nifedipine 60 mg 01/06/18 22:00 01/07/18 09:16 Procardia Xl - PO 60 mg BID [facility] Administration Prednisone 5 mg 01/05/18 22:00 01/06/18 21:41 Deltasone - PO 5 mg HS [facility] Administration Rosuvastatin Calcium 20 mg 01/05/18 22:00 01/06/18 21:42 Crestor - PO 20 mg HS [facility] Administration Tacrolimus 1 mg/ Tacrolimus 5 6 mg 01/05/18 22:00 01/07/18 09:18 mg PO 6 mg BID [facility]IS Administration Tamsulosin HCl 0.4 mg 01/05/18 08:30 01/07/18 08:42 Flomax - PO 0.4 mg DAILY@0830 [facility]IS Administration ASSESSMENT/PLAN: The patient is a 57 yo m w/ PMH CHF, kidney transplant, HTN who is being admitted for the treatment of CHF exacerbation. #CHF exacerbation of diastolic heart failure -daily weights; improving -IV Lasix 80 BID -fluid restriction 1L -supplemental O2 @ 2L #HTN -c/w home coreg 25 BID -c/w home procardia 60 BID #Kidney transplant -c/w cellcept 500 BID -c/w tacrolimus 6 mg BID -c/w prednisone 5mg -c/w home tamsulosin .4 mg #HIV -c/w home lamivudine 300mg -c/w home abacavir 600mg -c/w home tivicay 50mg #HLD -c/w home crestor 20mg HS #FEN -no fluids indicated -monitor lytes -diabetic diet #Prophy -Hep SQ 5ku TID #Dispo -admit to tele Visit type - Emergency Visit Emergency Visit: Yes ED Registration Date: 01/04/18 Care time: The patient presented to the Emergency Department on the above date and was hospitalized for further evaluation of their emergent condition. - New Patient This patient is new to me today: No - Critical Care Critical Care patient: No
[2018-01-07] MEDS: predniSONE 5 MG TABLET (UD) PO SCH (21:06)
[2018-01-07] MEDS: ROSUVASTATIN CA 20 MG TABLET (FP) PO SCH (21:06)
--- NOTE | 2018-01-08 06:28 | PN ---
<Keith Kelly - Last Filed: 01/08/18 15:50> Physical Exam: SUBJECTIVE: Patient seen and examined at bedside. states symptms have improved. Breathing easier. OBJECTIVE: Vital Signs Period Temp Pulse Resp BP Sys/Stone Pulse Ox Last 24 Hr 97.7 F-99.9 F 74-113 20-20 111-174/65-74 98-98 GENERAL: The patient is awake, alert, and fully oriented, in no acute distress. NECK: Trachea midline, full range of motion, supple. LUNGS: Breath sounds equal, clear to auscultation bilaterally. Decreased breath sounds at the bases. no wheezes, no crackles, no accessory muscle use. HEART: Regular rate and rhythm, S1, S2 without murmur, rub or gallop. ABDOMEN: Soft, nontender, nondistended, normoactive bowel sounds, no guarding, no rebound, no hepatosplenomegaly, no masses. EXTREMITIES: 2+ pulses, warm, well-perfused, 2+ pitting edema to the knee. NEUROLOGICAL: Cranial nerves II through X grossly intact. Normal speech, gait not observed. PSYCH: Normal mood, normal affect. SKIN: Warm, dry, normal turgor, no rashes or lesions noted Laboratory Results - last 24 hr 01/06/18 01/07/18 01/07/18 06:45 06:06 06:57 WBC 4.8 RBC 3.86 L Hgb 10.9 L Hct 34.2 L MCV 88.6 MCH 28.3 MCHC 31.9 L RDW 17.0 H Plt Count 129 L MPV 8.8 Sodium Potassium Chloride Carbon Dioxide Anion Gap BUN Creatinine POC Glucometer 120 Random Glucose Calcium Tacrolimus 10.6 01/07/18 01/07/18 01/07/18 06:57 11:40 16:38 WBC RBC Hgb Hct MCV MCH MCHC RDW Plt Count MPV Sodium 142 Potassium 4.8 Chloride 110 H Carbon Dioxide 27 Anion Gap 5 L BUN 30 H Creatinine 2.1 H POC Glucometer 115 143 Random Glucose 115 H Calcium 8.1 L Tacrolimus Active Medications Generic Name Dose Route Start Last Admin Trade Name Freq PRN Reason Stop Dose Admin Abacavir Sulfate 600 mg 01/07/18 10:00 01/07/18 09:17 Ziagen - PO 600 mg DAILY FRANCIS Administration Carvedilol 25 mg 01/05/18 10:00 01/07/18 21:06 Coreg - PO 25 mg BID [facility]IS Administration Furosemide 80 mg 01/05/18 14:00 01/07/18 13:54 Lasix Injection - IVPUSH 80 mg BIDLASIX [facility] Administration Heparin Sodium (Porcine) 5,000 unit 01/05/18 06:00 01/07/18 21:07 Heparin - SQ 5,000 unit TID [facility] Administration Insulin Aspart 1 vial 01/05/18 11:00 01/07/18 12:03 Novolog Vial Sliding Scale - SQ Not Given TIDAC [facility] Protocol Lamivudine 300 mg 01/06/18 16:43 01/07/18 09:20 Epivir - PO 300 mg DAILY [facility]IS Administration Mycophenolate Mofetil 500 mg 01/05/18 22:00 01/07/18 23:24 Cellcept - PO 500 mg BID [facility]IS Administration Nifedipine 60 mg 01/06/18 22:00 01/07/18 21:06 Procardia Xl - PO 60 mg BID [facility]IS Administration Prednisone 5 mg 01/05/18 22:00 01/07/18 21:06 Deltasone - PO 5 mg HS [facility]IS Administration Rosuvastatin Calcium 20 mg 01/05/18 22:00 01/07/18 21:06 Crestor - PO 20 mg HS FR[facility]IS Administration Tacrolimus 1 mg/ Tacrolimus 5 6 mg 01/05/18 22:00 01/07/18 23:25 mg PO 6 mg BID FRANCIS Administration Tamsulosin HCl 0.4 mg 01/05/18 08:30 01/07/18 08:42 Flomax - PO 0.4 mg DAILY@0830 [facility]IS Administration ASSESSMENT/PLAN: The patient is a 57 yo m w/ PMH CHF, kidney transplant, HTN who is being admitted for the treatment of CHF exacerbation. #CHF exacerbation of diastolic heart failure -daily weights; improving -IV Lasix 80 BID; will switch to 80 BID PO in AM -fluid restriction 1L -d/c'd supplemental O2, patient no longer requires #DM controlled -ISS #HTN -c/w home coreg 25 BID -c/w home procardia 60 BID #Kidney transplant -c/w cellcept 500 BID -c/w tacrolimus 6 mg BID -c/w prednisone 5mg -c/w home tamsulosin .4 mg #HIV -c/w home lamivudine 300mg -c/w home abacavir 600mg -c/w home tivicay 50mg #HLD -c/w home crestor 20mg HS #FEN -no fluids indicated -monitor lytes -diabetic diet #Prophy -Hep SQ 5ku TID #Dispo -admit to tele Visit type - Emergency Visit Emergency Visit: Yes ED Registration Date: 01/04/18 Care time: The patient presented to the Emergency Department on the above date and was hospitalized for further evaluation of their emergent condition. - New Patient This patient is new to me today: No - Critical Care Critical Care patient: No <Bernabe Farley - Last Filed: 01/08/18 19:21> Physical Exam: Patient seen and examined. Agree with the resident's plan. will continue with Lasix 80mg po bid, will monitor the electrolytes, if stable possible discharge in am. Vital Signs Temperature 99.5 F 01/08/18 07:19 Pulse Rate 74 01/08/18 07:19 Respiratory Rate 20 01/08/18 07:25 Blood Pressure 140/72 01/08/18 07:19 O2 Sat by Pulse Oximetry (%) 100 01/08/18 07:25 CBCD WBC 4.8 K/mm3 (4.0-10.0) 01/07/18 06:57 RBC 3.86 M/mm3 (4.00-5.60) L 01/07/18 06:57 Hgb 10.9 GM/dL (11.7-16.9) L 01/07/18 06:57 Hct 34.2 % (35.4-49) L 01/07/18 06:57 MCV 88.6 fl (80-96) 01/07/18 06:57 MCHC 31.9 g/dl (32.0-35.9) L 01/07/18 06:57 RDW 17.0 % (11.9-15.9) H 01/07/18 06:57 Plt Count 129 K/MM3 (134-434) L 01/07/18 06:57 MPV 8.8 fl (7.5-11.1) 01/07/18 06:57 CMP Sodium 142 mmol/L (136-145) 01/08/18 06:40 Potassium 4.3 mmol/L (3.5-5.1) 01/08/18 06:40 Chloride 107 mmol/L (98-107) 01/08/18 06:40 Carbon Dioxide 26 mmol/L (21-32) 01/08/18 06:40 Anion Gap 9 (8-16) 01/08/18 06:40 BUN 26 mg/dL (7-18) H 01/08/18 06:40 Creatinine 1.8 mg/dL (0.7-1.3) H 01/08/18 06:40 Creat Clearance w eGFR 38.81 (>60) 01/08/18 06:40 Random Glucose 108 mg/dL (74-106) H 01/08/18 06:40 Calcium 8.5 mg/dL (8.5-10.1) 01/08/18 06:40 Total Bilirubin 0.4 mg/dL (0.2-1.0) 01/08/18 06:40 AST 35 U/L (15-37) D 01/08/18 06:40 ALT 55 U/L (12-78) D 01/08/18 06:40 Alkaline Phosphatase 182 U/L (45-117) H 01/08/18 06:40 Total Protein 6.7 g/dl (6.4-8.2) 01/08/18 06:40 Albumin 3.8 g/dl (3.4-5.0) 01/08/18 06:40 CARDIAC ENZYMES Creatine Kinase 384 IU/L (39-308) H 01/04/18 19:46 Troponin I < 0.02 ng/ml (0.00-0.05) 01/04/18 19:46 Current Medications Generic Name Dose Route Start Last Admin Trade Name Isela PRN Reason Stop Dose Admin Abacavir Sulfate 600 mg 01/07/18 10:00 01/08/18 09:05 Ziagen - PO 600 mg DAILY FRANCIS Administration Carvedilol 25 mg 01/05/18 10:00 01/08/18 09:07 Coreg - PO 25 mg BID FR[facility]IS Administration Furosemide 80 mg 01/05/18 14:00 01/08/18 14:05 Lasix Injection - IVPUSH 01/09/18 00:00 80 mg BIDLASIX [facility]IS Administration Furosemide 80 mg 01/09/18 06:00 Lasix - PO BID@0600,1400 FRANCIS Heparin Sodium (Porcine) 5,000 unit 01/05/18 06:00 01/08/18 14:05 Heparin - SQ 5,000 unit TID FR[facility]IS Administration Insulin Aspart 1 vial 01/05/18 11:00 01/08/18 16:35 Novolog Vial Sliding Scale - SQ 2 units TIDAC [facility]IS Administration Protocol Lamivudine 300 mg 01/06/18 16:43 01/08/18 09:09 Epivir - PO 300 mg DAILY FRANCIS Administration Mycophenolate Mofetil 500 mg 01/05/18 22:00 01/08/18 09:05 Cellcept - PO 500 mg BID FR[facility]IS Administration Nifedipine 60 mg 01/06/18 22:00 01/08/18 09:07 Procardia Xl - PO 60 mg BID FRANCIS Administration Prednisone 5 mg 01/05/18 22:00 01/07/18 21:06 Deltasone - PO 5 mg HS FRANCIS Administration Rosuvastatin Calcium 20 mg 01/05/18 22:00 01/07/18 21:06 Crestor - PO 20 mg HS FRANCIS Administration Tacrolimus 1 mg/ Tacrolimus 5 6 mg 01/05/18 22:00 01/08/18 09:04 mg PO 6 mg BID FRANCIS Administration Tamsulosin HCl 0.4 mg 01/05/18 08:30 01/08/18 08:11 Flomax - PO 0.4 mg DAILY@0830 FRANCIS Administration Home Medications Medication Instructions Recorded Abacavir Sulfate [Abacavir] 300 mg PO BID 03/07/17 Carvedilol [Coreg] 25 mg PO BID 03/07/17 Dolutegravir Sodium [Tivicay] 50 mg PO DAILY 03/07/17 Insulin Glargine,Hum.rec.anlog 17 units SQ HS 03/07/17 [Lantus (nf)] Insulin Lispro [Humalog] 12 unit SQ TID 03/07/17 Lamivudine [Epivir] 150 mg PO DAILY 03/07/17 Mycophenolate Mofetil [Cellcept] 500 mg PO BID 03/07/17 Nifedipine ER [Procardia Xl -] 30 mg PO BID 03/07/17 Prednisone 5 mg PO HS 03/07/17 Rosuvastatin Calcium [Crestor] 10 mg PO DAILY 03/07/17 Sodium Bicarbonate - 1,300 mg PO BID 03/07/17 Tacrolimus [Prograf] 6 mg PO BID 03/07/17 Tamsulosin HCl [Flomax] 0.4 mg PO DAILY 03/07/17 Aspirin 81 mg PO DAILY 01/06/18 Furosemide [Lasix] 40 mg PO BID 01/06/18 Sulfamethoxazole/Trimethoprim 1 tab PO DAILY 01/06/18 [Bactrim Ds -]
[2018-01-08] MEDS: INSULIN SLIDING SCALE (NOVOLOG) 1 VIAL SQ SCH ×3 (06:53→16:35)
[2018-01-08] MEDS: FUROSEMIDE 40 MG/4 ML INJECTABLE VIAL IVPUSH SCH ×2 (06:54→14:05)
[2018-01-08] MEDS: HEPARIN NA (PORCINE) 5,000 UNITS/ML 1ML VIAL SQ SCH ×3 (06:54→22:54)
[2018-01-08 07:28] LABS: ALBUMIN 3.8 g/dl (3.4-5.0); ALK PHOS 182 U/L (45-117); ANION GAP 9 (8-16); BILIRUBIN,TOTAL 0.4 mg/dL (0.2-1.0); BLOOD UREA NITROGEN 26 mg/dL (7-18); CALCIUM 8.5 mg/dL (8.5-10.1); CHLORIDE 107 mmol/L (98-107); CO2 26 mmol/L (21-32); CREATININE 1.8 mg/dL (0.7-1.3); GLUCOSE,RANDOM 108 mg/dL (74-106); MAGNESIUM 2.2 mg/dL (1.8-2.4); POTASSIUM 4.3 mmol/L (3.5-5.1); SGOT/AST 35 U/L (15-37); SGPT/ALT 55 U/L (12-78); SODIUM 142 mmol/L (136-145); TOT PROT 6.7 g/dl (6.4-8.2)
[2018-01-08] MEDS: TAMSULOSIN HCL 0.4 MG CAP.ER.24H (FP) PO SCH (08:11)
[2018-01-08] MEDS: TACROLIMUS ANHYDROUS PO SCH ×2 (09:04→23:12)
[2018-01-08] MEDS: ABACAVIR SULFATE 300 MG TABLET PO SCH (09:05)
[2018-01-08] MEDS: MYCOPHENOLATE MOFETIL 500 MG TABLET PO SCH ×2 (09:05→23:11)
[2018-01-08] MEDS: CARVEDILOL 25 MG TABLET (FP) PO SCH ×2 (09:07→22:55)
[2018-01-08] MEDS: NIFEdipine E.R 60 MG TABLET (UD) PO SCH ×2 (09:07→22:54)
[2018-01-08] MEDS: lamiVUDine 150 MG TABLET PO SCH (09:09)
[2018-01-08] MEDS: DOLUTEGRAVIR SODIUM 50 MG TABLET PO SCH (09:10)
--- NOTE | 2018-01-08 09:28 | PN ---
Progress Note, Physician Chief Complaint: Feels well Lying flat in bed History of Present Illness: This is a 57 year old male with a PMH of CHF, HIV on HAART, HTN, and DM. ESRD previously on HD till kidney transplant in 2017. Over the past 4 days he has noticed the progressive on-set of CHF. This worsened and he called EMS who found him in respiratory distress. CXR showed an enlarged hear and SOB. He is improving on Lasix 80 mg IVSS BID - Current Medication List Current Medications: Active Medications Abacavir Sulfate (Ziagen -) 600 mg PO DAILY [facility] Last Admin: 01/08/18 09:05 Dose: 600 mg Carvedilol (Coreg -) 25 mg PO BID [facility] Last Admin: 01/08/18 09:07 Dose: 25 mg Furosemide (Lasix Injection -) 80 mg IVPUSH BIDLASIX [facility] Last Admin: 01/08/18 06:54 Dose: 80 mg Heparin Sodium (Porcine) (Heparin -) 5,000 unit SQ TID [facility] Last Admin: 01/08/18 06:54 Dose: 5,000 unit Insulin Aspart (Novolog Vial Sliding Scale -) 1 vial SQ TIDAC [facility] PRN Reason: Protocol Last Admin: 01/08/18 06:53 Dose: Not Given Lamivudine (Epivir -) 300 mg PO DAILY [facility] Last Admin: 01/08/18 09:09 Dose: 300 mg Mycophenolate Mofetil (Cellcept -) 500 mg PO BID [facility] Last Admin: 01/08/18 09:05 Dose: 500 mg Nifedipine (Procardia Xl -) 60 mg PO BID [facility] Last Admin: 01/08/18 09:07 Dose: 60 mg Prednisone (Deltasone -) 5 mg PO HS [facility] Last Admin: 01/07/18 21:06 Dose: 5 mg Rosuvastatin Calcium (Crestor -) 20 mg PO HS [facility] Last Admin: 01/07/18 21:06 Dose: 20 mg Tacrolimus 1 mg/ Tacrolimus 5 (mg) 6 mg PO BID [facility] Last Admin: 01/08/18 09:04 Dose: 6 mg Tamsulosin HCl (Flomax -) 0.4 mg PO DAILY@0830 [facility] Last Admin: 01/08/18 08:11 Dose: 0.4 mg - Objective Vital Signs: Vital Signs Temperature 99.5 F 01/08/18 07:19 Pulse Rate 74 01/08/18 07:19 Respiratory Rate 20 01/08/18 07:25 Blood Pressure 140/72 01/08/18 07:19 O2 Sat by Pulse Oximetry (%) 100 01/08/18 07:25 Constitutional: Yes: No Distress Neck: Yes: Supple Cardiovascular: Yes: Regular Rate and Rhythm, S1, S2. No: JVD Respiratory: Yes: CTA Bilaterally Edema: LLE: 1+, RLE: 1+ Labs: CBC, BMP 01/07/18 06:57 01/08/18 06:40 INR, PTT INR 1.04 (0.82-1.09) 01/05/18 05:00 Problem List - Problems (1) Acute exacerbation of CHF (congestive heart failure) Code(s): I50.9 - HEART FAILURE, UNSPECIFIED Qualifiers: Heart failure type: unspecified Qualified Code(s): I50.9 - Heart failure, unspecified Assessment/Plan This is a 57 year old male with a PMH of CHF, HIV on HAART, HTN, and DM. ESRD previously on HD till kidney transplant in 2017. Over the past 4 days he has noticed the progressive on-set of CHF. This worsened and he called EMS who found him in respiratory distress. CXR showed an enlarged hear and SOB. 1) Acute CHF -Improving with diuretics. Would continue with Furosemide 80mg IV bid and plan to change to PO 80mg BID tomorrow Monitor lytes, urine output, and renal function which is improving. -Echocardiogram with normal LVEF and no significant valve disease 2) HTN On carvedilol and nifedipine 3) Renal Renal f/u Cr stable. Will sign off at this time. Please call back if needed
--- NOTE | 2018-01-08 12:13 | PN ---
Progress Note, Physician History of Present Illness: Pt seen and examined at bedside. He is awake and alert. He feels that his lower ext edema is improved. - Current Medication List Current Medications: Active Medications Abacavir Sulfate (Ziagen -) 600 mg PO DAILY [facility] Last Admin: 01/08/18 09:05 Dose: 600 mg Carvedilol (Coreg -) 25 mg PO BID [facility] Last Admin: 01/08/18 09:07 Dose: 25 mg Furosemide (Lasix Injection -) 80 mg IVPUSH BIDLASIX [facility] Last Admin: 01/08/18 06:54 Dose: 80 mg Heparin Sodium (Porcine) (Heparin -) 5,000 unit SQ TID [facility] Last Admin: 01/08/18 06:54 Dose: 5,000 unit Insulin Aspart (Novolog Vial Sliding Scale -) 1 vial SQ TIDAC [facility] PRN Reason: Protocol Last Admin: 01/08/18 11:00 Dose: Not Given Lamivudine (Epivir -) 300 mg PO DAILY [facility] Last Admin: 01/08/18 09:09 Dose: 300 mg Mycophenolate Mofetil (Cellcept -) 500 mg PO BID [facility] Last Admin: 01/08/18 09:05 Dose: 500 mg Nifedipine (Procardia Xl -) 60 mg PO BID [facility] Last Admin: 01/08/18 09:07 Dose: 60 mg Prednisone (Deltasone -) 5 mg PO HS [facility] Last Admin: 01/07/18 21:06 Dose: 5 mg Rosuvastatin Calcium (Crestor -) 20 mg PO HS [facility] Last Admin: 01/07/18 21:06 Dose: 20 mg Tacrolimus 1 mg/ Tacrolimus 5 (mg) 6 mg PO BID [facility] Last Admin: 01/08/18 09:04 Dose: 6 mg Tamsulosin HCl (Flomax -) 0.4 mg PO DAILY@0830 [facility] Last Admin: 01/08/18 08:11 Dose: 0.4 mg - Objective Vital Signs: Vital Signs Temperature 99.5 F 01/08/18 07:19 Pulse Rate 74 01/08/18 07:19 Respiratory Rate 20 01/08/18 07:25 Blood Pressure 140/72 01/08/18 07:19 O2 Sat by Pulse Oximetry (%) 100 01/08/18 07:25 Constitutional: Yes: Calm Eyes: Yes: Conjunctiva Clear HENT: Yes: Atraumatic Cardiovascular: Yes: S1, S2 Respiratory: Yes: On Nasal O2 Gastrointestinal: Yes: Soft Genitourinary: Yes: Other (graft soft and non tender) Extremities: Yes: WNL Edema: Yes Edema: LLE: 1+, RLE: 1+ Neurological: Yes: Oriented Psychiatric: Yes: Oriented Labs: CBC, BMP 01/07/18 06:57 01/08/18 06:40 INR, PTT INR 1.04 (0.82-1.09) 01/05/18 05:00 Problem List - Problems (1) CKD (chronic kidney disease) Code(s): N18.9 - CHRONIC KIDNEY DISEASE, UNSPECIFIED (2) Kidney transplant recipient Code(s): Z94.0 - KIDNEY TRANSPLANT STATUS (3) Acute exacerbation of CHF (congestive heart failure) Code(s): I50.9 - HEART FAILURE, UNSPECIFIED Qualifiers: Heart failure type: unspecified Qualified Code(s): I50.9 - Heart failure, unspecified (4) Anemia Code(s): D64.9 - ANEMIA, UNSPECIFIED Qualifiers: Anemia type: unspecified type Qualified Code(s): D64.9 - Anemia, unspecified Assessment/Plan Current Medications Generic Name Dose Route Start Last Admin Trade Name Freq PRN Reason Stop Dose Admin Abacavir Sulfate 600 mg 01/07/18 10:00 01/08/18 09:05 Ziagen - PO 600 mg DAILY [facility] Administration Carvedilol 25 mg 01/05/18 10:00 01/08/18 09:07 Coreg - PO 25 mg BID [facility] Administration Furosemide 80 mg 01/05/18 14:00 01/08/18 06:54 Lasix Injection - IVPUSH 80 mg BIDLASIX [facility] Administration Heparin Sodium (Porcine) 5,000 unit 01/05/18 06:00 01/08/18 06:54 Heparin - SQ 5,000 unit TID [facility] Administration Insulin Aspart 1 vial 01/05/18 11:00 01/08/18 11:00 Novolog Vial Sliding Scale - SQ Not Given TIDAC [facility] Protocol Lamivudine 300 mg 01/06/18 16:43 01/08/18 09:09 Epivir - PO 300 mg DAILY [facility] Administration Mycophenolate Mofetil 500 mg 01/05/18 22:00 01/08/18 09:05 Cellcept - PO 500 mg BID [facility] Administration Nifedipine 60 mg 01/06/18 22:00 01/08/18 09:07 Procardia Xl - PO 60 mg BID [facility] Administration Prednisone 5 mg 01/05/18 22:00 01/07/18 21:06 Deltasone - PO 5 mg HS [facility] Administration Rosuvastatin Calcium 20 mg 01/05/18 22:00 01/07/18 21:06 Crestor - PO 20 mg HS [facility] Administration Tacrolimus 1 mg/ Tacrolimus 5 6 mg 01/05/18 22:00 01/08/18 09:04 mg PO 6 mg BID [facility] Administration Tamsulosin HCl 0.4 mg 01/05/18 08:30 01/08/18 08:11 Flomax - PO 0.4 mg DAILY@0830 [facility] Administration Laboratory Tests 01/06/18 06:45 Tacrolimus 10.6 Impression 1. kidney transplant 2. CKD 3. CHF 4. fluid overload 5. DM 6. HTN 7. HIV Disease 8. ANAHI 9. Hypervolemic hyponatremia 10. Pancytopenia on cellcept 11. 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
[2018-01-08 21:32] LABS: HEMATOCRIT 34.2 % (35.4-49); HEMOGLOBIN 11.2 GM/dL (11.7-16.9); MCH 28.8 pg (25.7-33.7); MCHC 32.8 g/dl (32.0-35.9); MEAN CELL VOLUME 87.7 fl (80-96); MEAN PLT VOLUME 8.6 fl (7.5-11.1); PLATELET COUNT 134 K/MM3 (134-434); WHITE BLOOD COUNT 4.6 K/mm3 (4.0-10.0)
[2018-01-08] MEDS: ROSUVASTATIN CA 20 MG TABLET (FP) PO SCH (22:55)
[2018-01-08] MEDS: predniSONE 5 MG TABLET (UD) PO SCH (22:55)
[2018-01-09] MEDS: HEPARIN NA (PORCINE) 5,000 UNITS/ML 1ML VIAL SQ SCH ×2 (06:07→13:40)
[2018-01-09] MEDS: FUROSEMIDE 40 MG TABLET (FP) PO SCH ×2 (06:08→13:40)
[2018-01-09] MEDS: INSULIN SLIDING SCALE (NOVOLOG) 1 VIAL SQ SCH ×3 (06:08→17:58)
[2018-01-09 08:15] LABS: HEMATOCRIT 33.8 % (35.4-49); HEMOGLOBIN 10.8 GM/dL (11.7-16.9); MCH 28.2 pg (25.7-33.7); MEAN CELL VOLUME 88.2 fl (80-96); MEAN PLT VOLUME 8.1 fl (7.5-11.1); PLATELET COUNT 135 K/MM3 (134-434); RBC 3.84 M/mm3 (4.00-5.60); RDW 16.8 % (11.9-15.9); WHITE BLOOD COUNT 4.8 K/mm3 (4.0-10.0)
[2018-01-09 08:39] LABS: CALCIUM 8.3 mg/dL (8.5-10.1); CHLORIDE 112 mmol/L (98-107); POTASSIUM 4.2 mmol/L (3.5-5.1); SODIUM 143 mmol/L (136-145)
[2018-01-09 08:42] LABS: ANION GAP 6 (8-16); BLOOD UREA NITROGEN 27 mg/dL (7-18); CO2 25 mmol/L (21-32); CREATININE 1.8 mg/dL (0.7-1.3); GLUCOSE,RANDOM 117 mg/dL (74-106)
[2018-01-09] MEDS ORDERED: PT OWN MED DRAWER 7, Y5N ONE (11:18)
[2018-01-09] MEDS: TAMSULOSIN HCL 0.4 MG CAP.ER.24H (FP) PO SCH (11:20)
[2018-01-09] MEDS: CARVEDILOL 25 MG TABLET (FP) PO SCH (11:21)
[2018-01-09] MEDS: NIFEdipine E.R 60 MG TABLET (UD) PO SCH (11:21)
[2018-01-09] MEDS: ABACAVIR SULFATE 300 MG TABLET PO SCH (11:21)
[2018-01-09] MEDS: MYCOPHENOLATE MOFETIL 500 MG TABLET PO SCH (11:22)
[2018-01-09] MEDS: TACROLIMUS ANHYDROUS PO SCH (11:25)
[2018-01-09] MEDS: DOLUTEGRAVIR SODIUM 50 MG TABLET PO SCH (11:31)
[2018-01-09] MEDS: lamiVUDine 150 MG TABLET PO SCH (11:31)
--- NOTE | 2018-01-09 13:01 | PN ---
Progress Note, Physician History of Present Illness: Pt seen and examined at bedside. He is awake and alert. He denies shortness of breath. He is ambulating without difficulty. - Current Medication List Current Medications: Active Medications Abacavir Sulfate (Ziagen -) 600 mg PO DAILY [facility] Last Admin: 01/09/18 11:21 Dose: 600 mg Carvedilol (Coreg -) 25 mg PO BID [facility] Last Admin: 01/09/18 11:21 Dose: 25 mg Furosemide (Lasix -) 80 mg PO BID@0600,1400 [facility] Last Admin: 01/09/18 06:08 Dose: 80 mg Heparin Sodium (Porcine) (Heparin -) 5,000 unit SQ TID [facility] Last Admin: 01/09/18 06:07 Dose: 5,000 unit Insulin Aspart (Novolog Vial Sliding Scale -) 1 vial SQ TIDAC [facility] PRN Reason: Protocol Last Admin: 01/09/18 12:18 Dose: Not Given Lamivudine (Epivir -) 300 mg PO DAILY [facility] Last Admin: 01/09/18 11:31 Dose: 300 mg Mycophenolate Mofetil (Cellcept -) 500 mg PO BID [facility] Last Admin: 01/09/18 11:22 Dose: 500 mg Nifedipine (Procardia Xl -) 60 mg PO BID [facility] Last Admin: 01/09/18 11:21 Dose: 60 mg Prednisone (Deltasone -) 5 mg PO HS [facility] Last Admin: 01/08/18 22:55 Dose: 5 mg Rosuvastatin Calcium (Crestor -) 20 mg PO HS [facility] Last Admin: 01/08/18 22:55 Dose: 20 mg Tacrolimus 1 mg/ Tacrolimus 5 (mg) 6 mg PO BID [facility] Last Admin: 01/09/18 11:25 Dose: 6 mg Tamsulosin HCl (Flomax -) 0.4 mg PO DAILY@0830 [facility] Last Admin: 01/09/18 11:20 Dose: 0.4 mg - Objective Vital Signs: Vital Signs Temperature 97.9 F 01/09/18 06:00 Pulse Rate 71 01/09/18 06:00 Respiratory Rate 20 01/09/18 06:00 Blood Pressure 152/69 01/09/18 06:00 O2 Sat by Pulse Oximetry (%) 98 01/09/18 08:40 Constitutional: Yes: Calm Eyes: Yes: Conjunctiva Clear HENT: Yes: Atraumatic Cardiovascular: Yes: S1, S2 Respiratory: Yes: CTA Bilaterally Gastrointestinal: Yes: Soft, Abdomen, Obese Genitourinary: Yes: Other (graft soft and non tender) Musculoskeletal: Yes: WNL Edema: Yes Edema: LLE: Trace, RLE: Trace Neurological: Yes: Oriented Psychiatric: Yes: Oriented Labs: CBC, BMP 01/09/18 08:00 01/09/18 08:00 INR, PTT INR 1.04 (0.82-1.09) 01/05/18 05:00 Problem List - Problems (1) CKD (chronic kidney disease) Code(s): N18.9 - CHRONIC KIDNEY DISEASE, UNSPECIFIED (2) Kidney transplant recipient Code(s): Z94.0 - KIDNEY TRANSPLANT STATUS (3) Acute exacerbation of CHF (congestive heart failure) Code(s): I50.9 - HEART FAILURE, UNSPECIFIED Qualifiers: Heart failure type: unspecified Qualified Code(s): I50.9 - Heart failure, unspecified (4) Anemia Code(s): D64.9 - ANEMIA, UNSPECIFIED Qualifiers: Anemia type: unspecified type Qualified Code(s): D64.9 - Anemia, unspecified Assessment/Plan Current Medications Generic Name Dose Route Start Last Admin Trade Name Freq PRN Reason Stop Dose Admin Abacavir Sulfate 600 mg 01/07/18 10:00 01/09/18 11:21 Ziagen - PO 600 mg DAILY [facility] Administration Carvedilol 25 mg 01/05/18 10:00 01/09/18 11:21 Coreg - PO 25 mg BID [facility] Administration Furosemide 80 mg 01/09/18 06:00 01/09/18 06:08 Lasix - PO 80 mg BID@0600,1400 [facility] Administration Heparin Sodium (Porcine) 5,000 unit 01/05/18 06:00 01/09/18 06:07 Heparin - SQ 5,000 unit TID [facility] Administration Insulin Aspart 1 vial 01/05/18 11:00 01/09/18 12:18 Novolog Vial Sliding Scale - SQ Not Given TIDAC [facility] Protocol Lamivudine 300 mg 01/06/18 16:43 01/09/18 11:31 Epivir - PO 300 mg DAILY [facility] Administration Mycophenolate Mofetil 500 mg 01/05/18 22:00 01/09/18 11:22 Cellcept - PO 500 mg BID [facility] Administration Nifedipine 60 mg 01/06/18 22:00 01/09/18 11:21 Procardia Xl - PO 60 mg BID [facility] Administration Prednisone 5 mg 01/05/18 22:00 01/08/18 22:55 Deltasone - PO 5 mg HS [facility] Administration Rosuvastatin Calcium 20 mg 01/05/18 22:00 01/08/18 22:55 Crestor - PO 20 mg HS [facility] Administration Tacrolimus 1 mg/ Tacrolimus 5 6 mg 01/05/18 22:00 01/09/18 11:25 mg PO 6 mg BID [facility] Administration Tamsulosin HCl 0.4 mg 01/05/18 08:30 01/09/18 11:20 Flomax - PO 0.4 mg DAILY@0830 [facility] Administration Laboratory Tests 01/08/18 21:00 Tacrolimus Pending Impression 1. kidney transplant 2. CKD 3. CHF 4. fluid overload 5. DM 6. HTN 7. HIV Disease 8. ANAHI 9. Hypervolemic hyponatremia 10. Pancytopenia on cellcept 11. 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
--- NOTE | 2018-01-09 17:04 | PN ---
Teaching Attending Note Name of Resident: Keith Kelly ATTENDING PHYSICIAN STATEMENT I saw and evaluated the patient. I reviewed the resident's note and discussed the case with the resident. I agree with the resident's findings and plan as documented. SUBJECTIVE: Patient is feeling better with no acute distress, no nausea or vomiting, no fever or chills,. OBJECTIVE: Vital Signs Temperature 97.9 F 01/09/18 06:00 Pulse Rate 71 01/09/18 06:00 Respiratory Rate 20 01/09/18 06:00 Blood Pressure 152/69 01/09/18 06:00 O2 Sat by Pulse Oximetry (%) 98 01/09/18 08:40 CBCD WBC 4.8 K/mm3 (4.0-10.0) 01/09/18 08:00 RBC 3.84 M/mm3 (4.00-5.60) L 01/09/18 08:00 Hgb 10.8 GM/dL (11.7-16.9) L 01/09/18 08:00 Hct 33.8 % (35.4-49) L 01/09/18 08:00 MCV 88.2 fl (80-96) 01/09/18 08:00 MCHC 32.0 g/dl (32.0-35.9) 01/09/18 08:00 RDW 16.8 % (11.9-15.9) H 01/09/18 08:00 Plt Count 135 K/MM3 (134-434) 01/09/18 08:00 MPV 8.1 fl (7.5-11.1) 01/09/18 08:00 CMP Sodium 143 mmol/L (136-145) 01/09/18 08:00 Potassium 4.2 mmol/L (3.5-5.1) 01/09/18 08:00 Chloride 112 mmol/L (98-107) H 01/09/18 08:00 Carbon Dioxide 25 mmol/L (21-32) 01/09/18 08:00 Anion Gap 6 (8-16) L 01/09/18 08:00 BUN 27 mg/dL (7-18) H 01/09/18 08:00 Creatinine 1.8 mg/dL (0.7-1.3) H 01/09/18 08:00 Creat Clearance w eGFR 38.81 (>60) 01/08/18 06:40 Random Glucose 117 mg/dL (74-106) H 01/09/18 08:00 Calcium 8.3 mg/dL (8.5-10.1) L 01/09/18 08:00 Total Bilirubin 0.4 mg/dL (0.2-1.0) 01/08/18 06:40 AST 35 U/L (15-37) D 01/08/18 06:40 ALT 55 U/L (12-78) D 01/08/18 06:40 Alkaline Phosphatase 182 U/L (45-117) H 01/08/18 06:40 Total Protein 6.7 g/dl (6.4-8.2) 01/08/18 06:40 Albumin 3.8 g/dl (3.4-5.0) 01/08/18 06:40 CARDIAC ENZYMES Creatine Kinase 384 IU/L (39-308) H 01/04/18 19:46 Troponin I < 0.02 ng/ml (0.00-0.05) 01/04/18 19:46 Current Medications Generic Name Dose Route Start Last Admin Trade Name Freq PRN Reason Stop Dose Admin Abacavir Sulfate 600 mg 01/07/18 10:00 01/09/18 11:21 Ziagen - PO 600 mg DAILY [facility] Administration Carvedilol 25 mg 01/05/18 10:00 01/09/18 11:21 Coreg - PO 25 mg BID [facility] Administration Furosemide 80 mg 01/09/18 06:00 01/09/18 13:40 Lasix - PO 80 mg BID@0600,1400 [facility] Administration Heparin Sodium (Porcine) 5,000 unit 01/05/18 06:00 01/09/18 13:40 Heparin - SQ 5,000 unit TID [facility] Administration Insulin Aspart 1 vial 01/05/18 11:00 01/09/18 12:18 Novolog Vial Sliding Scale - SQ Not Given TIDAC [facility] Protocol Lamivudine 300 mg 01/06/18 16:43 01/09/18 11:31 Epivir - PO 300 mg DAILY [facility] Administration Mycophenolate Mofetil 500 mg 01/05/18 22:00 01/09/18 11:22 Cellcept - PO 500 mg BID [facility] Administration Nifedipine 60 mg 01/06/18 22:00 01/09/18 11:21 Procardia Xl - PO 60 mg BID [facility] Administration Prednisone 5 mg 01/05/18 22:00 01/08/18 22:55 Deltasone - PO 5 mg HS [facility] Administration Rosuvastatin Calcium 20 mg 01/05/18 22:00 01/08/18 22:55 Crestor - PO 20 mg HS [facility] Administration Tacrolimus 1 mg/ Tacrolimus 5 6 mg 01/05/18 22:00 01/09/18 11:25 mg PO 6 mg BID [facility] Administration Tamsulosin HCl 0.4 mg 01/05/18 08:30 01/09/18 11:20 Flomax - PO 0.4 mg DAILY@0830 [facility] Administration Home Medications Medication Instructions Recorded Abacavir Sulfate [Abacavir] 300 mg PO BID 03/07/17 Carvedilol [Coreg] 25 mg PO BID 03/07/17 Dolutegravir Sodium [Tivicay] 50 mg PO DAILY 03/07/17 Insulin Glargine,Hum.rec.anlog 17 units SQ HS 03/07/17 [Lantus (10mL VIAL) -] Insulin Lispro [Humalog] 12 unit SQ TID 03/07/17 Lamivudine [Epivir] 150 mg PO DAILY 03/07/17 Mycophenolate Mofetil [Cellcept] 500 mg PO BID 03/07/17 Nifedipine ER [Procardia XL -] 30 mg PO BID 03/07/17 Prednisone 5 mg PO HS 03/07/17 Rosuvastatin Calcium [Crestor] 10 mg PO DAILY 03/07/17 Sodium Bicarbonate - 1,300 mg PO BID 03/07/17 Tacrolimus [Prograf] 6 mg PO BID 03/07/17 Tamsulosin HCl [Flomax] 0.4 mg PO DAILY 03/07/17 Aspirin 81 mg PO DAILY 01/06/18 Furosemide [Lasix -] 80 mg PO BID@0600,1400 #60 tablet 01/09/18 PE: As per resident's note Chest: CTABL CVS: S1S2 positive EXT: pulses are positive, No C/c trace edema. ASSESSMENT AND PLAN: Patient is a 57 y/o man with PMHx of CKD , s/p renal transplant, HTN, HIV, CHF , HLP, DM , GI bleed presented with SOB and worsening LE edema , and was diagnosed with acute diastolic CHF exacerbation . # Acute hypoxic respiratory failure due to Acute on chronic diastolic CHF exacerbation. Improved on IV lasix, will discharge the patient on oral Lasix 80mg BId discussed with Dr. Arroyo and the assistant city attorney. Continue Coreg, echo reviewed # ARF over chronic , patient will follow with Dr. Padron,s/p renal transplant . His base line Cr is 2 , increased to 3 then had a renal Bx on 12/16/17 which showed ATn with no signs of rejection. Dr. Padron reports compliance with meds . Patient's creatinine today is 1.8. Renal US with no hydro in transplanted kidney cont prednisone, tacrulimus and cellcept . # H/o DM :on 17 units of lantus continue with Sliding scale # HTN: cont nifedipine xl, and coreg # hyponatremia:likely due to CHF.improved # hyperkalemia :resolved # Transamnitis : likely liver congestion form heart failure . improved #H/o HIV: cont home meds. DVT PX
[2018-01-09 18:54] VITALS: BP 154/66; PULSE 75; TEMP 98.2
--- NOTE | 2018-01-11 13:51 | DS ---
Physical Exam: SUBJECTIVE: Patient seen and examined at bedside. Patient feels better, is breathing better OBJECTIVE: PHYSICAL EXAM GENERAL: The patient is awake, alert, and fully oriented, in no acute distress. LUNGS: Breath sounds equal, clear to auscultation bilaterally, no wheezes, no crackles, no accessory muscle use. HEART: Regular rate and rhythm, S1, S2 without murmur, rub or gallop. ABDOMEN: Soft, nontender, nondistended, normoactive bowel sounds, no guarding, no rebound, no hepatosplenomegaly, no masses. EXTREMITIES: 2+ pulses, warm, well-perfused, no edema. NEUROLOGICAL: Cranial nerves II through X grossly intact. Normal speech, gait not observed. PSYCH: Normal mood, normal affect. SKIN: Warm, dry, normal turgor, no rashes or lesions noted. LABS Laboratory Results - last 24 hr 01/08/18 21:00 Tacrolimus 5.5 HOSPITAL COURSE: Date of Admission:01/04/18 The patient is a 57 yo m w/ PMH CHF, HIV, Kidney transplant, HTN BIBEMS c/o worsening SOB, cough, orthopnea and LE swelling for the days. The cough was non- productive. The patient also complained of orthopnea. In the ED, A CXR showed cardiomegaly and pulmonary congestion. He was also found to have a creatinine of 3.1 and a sodium of 127. The patient was admitted for further treatment of a CHF exacerbation and acute kidney injury. Cardiology was consulted. A renal ultrasound showed no hydronephrosis. Nephrology was consulted. The patient was treated with lasix and IV fluids. He improved clinically. His shortness of breath resolved. His creatinine normalized. The patient was discharged home with a prescription for 80mg of Lasix BID. He was advised to follow up with a computer operations manager, a bander and cellophaner machine helper and his primary care doctor within one week of discharge home. Date of Discharge: 01/09/18 Minutes to complete discharge: 45 Discharge Summary Reason For Visit: HYPONATREMIA, ANEMIA Condition: Improved - Instructions Diet, Activity, Other Instructions: You were admitted for the treatment of your congestive heart failure. We have changed some of your medications. We have changed your dose of lasix from 40mg twice per day to 80mg twice per day. Please start taking this new dose starting tomorrow. You should resume taking the rest of your medications as prescribed starting tomorrow. You should follow up with your kidney doctor, Dr. Pearl, within one week of discharge home. You should also follow up with your primary care doctor within one week. You will also need to follow up with a computer operations manager after discharge. Information for Dr. Wong has been included in your discharge information. Please call to make an appointment. If you begin to experience chest pain, shortness of breath or if any of your symptoms get worse, please call your doctor or return to the emergency department. Referrals: Milly Pearl MD [Staff Physician] - 1 Week Rolando Wong MD [Staff Physician] - 1 Week Marco Antonio Gutierrez MD [Staff Physician] - 1 Week Disposition: HOME - Home Medications Comprehensive Discharge Medication List: Ambulatory Orders Abacavir Sulfate [Abacavir] 300 mg PO BID 03/07/17 Carvedilol [Coreg] 25 mg PO BID 03/07/17 Dolutegravir Sodium [Tivicay] 50 mg PO DAILY 03/07/17 Insulin Glargine,Hum.rec.anlog [Lantus (10mL VIAL) -] 17 units SQ HS 03/07/17 Insulin Lispro [Humalog] 12 unit SQ TID 03/07/17 Lamivudine [Epivir] 150 mg PO DAILY 03/07/17 Mycophenolate Mofetil [Cellcept] 500 mg PO BID 03/07/17 Nifedipine ER [Procardia XL -] 30 mg PO BID 03/07/17 Prednisone 5 mg PO HS 03/07/17 Rosuvastatin Calcium [Crestor] 10 mg PO DAILY 03/07/17 Sodium Bicarbonate - 1,300 mg PO BID 03/07/17 Tacrolimus [Prograf] 6 mg PO BID 03/07/17 Tamsulosin HCl [Flomax] 0.4 mg PO DAILY 03/07/17 Aspirin 81 mg PO DAILY 01/06/18 Furosemide [Lasix -] 80 mg PO BID@0600,1400 #60 tablet 01/09/18 This patient is new to me today: No Emergency Visit: Yes ED Registration Date: 01/04/18 Care time: The patient presented to the Emergency Department on the above date and was hospitalized for further evaluation of their emergent condition. Critical Care patient: No - Discharge Referral Referred to [facility] No
== END 2018-01-09 19:09 | disposition home or self-care (01) | DRG 291 ==
LOC: JER 18:51 → JERBED 22:25 → J4W 01-05 00:11 → J5S 01-08 18:21
PROVIDERS: ADMIT Internal Medicine; ATTEND Internal Medicine
PROC: 5A09457 Assistance with Respiratory Ventilation, 24-96 Consecutive Hours, Continuous Positive Airway Pressure (ICD-10-PCS; principal; 2018-01-04)
DX: I13.0 Hypertensive heart and chronic kidney disease with heart failure and stage 1 through stage 4 chronic kidney disease, or unspecified chronic kidney disease (principal); J96.01 Acute respiratory failure with hypoxia; I50.33 Acute on chronic diastolic (congestive) heart failure; Z94.0 Kidney transplant status; E87.1 Hypo-osmolality and hyponatremia; N18.4 Chronic kidney disease, stage 4 (severe); D61.818 Other pancytopenia; Z21 Asymptomatic human immunodeficiency virus [HIV] infection status; E11.22 Type 2 diabetes mellitus with diabetic chronic kidney disease; E78.00 Pure hypercholesterolemia, unspecified; D63.8 Anemia in other chronic diseases classified elsewhere; E87.5 Hyperkalemia; R74.0 Nonspecific elevation of levels of transaminase and lactic acid dehydrogenase [LDH]; E86.1 Hypovolemia; E87.70 Fluid overload, unspecified; Z79.4 Long term (current) use of insulin
CPT/HCPCS: 36415; 36600; 71045-TC-FY; 76775-TC; 80048; 80053; 80197; 81003; 81015; 82550; 82553; 82803; 82962; 83605; 83735; 84100; 84484; 85025; 85027; 85610; 85730; 86850; 86900; 86901; 87040; 87086; 93005; 93010; 93306-TC; 94660; 97116-GP; 97161-GP; 99283-25; J1644; J7517